=== PATIENT | male | born 1945 | race Caucasian/White ===

== ENCOUNTER → 2021-04-23 08:04 | Outpatient (CLI) | payer MEDICARE, OTHER, SELFPAY | PROVIDERS: Visit Provider Nurse Practitioner | DX: U07.1 COVID-19 (principal) | CPT/HCPCS: C9803; U0003; U0005 ==

== ENCOUNTER 2021-10-01 18:07 | Emergency (ER) | payer MEDICARE, OTHER, SELFPAY ==
[2021-10-01 18:08] VITALS: BP 131/86; PULSE 77; RESP 18; TEMP 37; O2SAT 97; BMI 32.1
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
--- NOTE | 2021-10-01 18:25 | PC.NURSE ---
cleansed head laceration with hibacleanse and 4x4. at bs, placed loli to secure laceration
--- NOTE | 2021-10-01 18:28 | PC.NURSE ---
pt to ct scan
[2021-10-01 19:19] VITALS: BP 136/86; PULSE 77; RESP 18; TEMP 37; O2SAT 97
== END 2021-10-01 19:19 | disposition home or self-care (01) ==
PROVIDERS: Emergency Provider Emergency Medicine
DX: S01.01XA Laceration without foreign body of scalp, initial encounter (principal); E78.5 Hyperlipidemia, unspecified; I10 Essential (primary) hypertension; Z79.899 Other long term (current) drug therapy; Z82.49 Family history of ischemic heart disease and other diseases of the circulatory system; Z83.438 Family history of other disorder of lipoprotein metabolism and other lipidemia; Z83.49 Family history of other endocrine, nutritional and metabolic diseases; Z83.3 Family history of diabetes mellitus; V86.55XA Driver of 3- or 4- wheeled all-terrain vehicle (ATV) injured in nontraffic accident, initial encounter
CPT/HCPCS: 12002; 70450; 90471; 90715; 99285

== ENCOUNTER 2023-04-14 03:38 | Observation (INO) | payer MEDICARE, OTHER, SELFPAY ==
[2023-04-14] VITALS (29 sets, daily range): BP systolic 113–190; BP diastolic 59–112; PULSE 49–84; RESP 12–21; TEMP 36.4–36.8; O2SAT 92–99; BMI 32.5; BMI 32.3
--- NOTE | 2023-04-14 | IR_ITS ---
APPROVED REPORT Patient Location: Inpatient District Supervisor: AUDI Kam RT (R) PROCEDURES Left heart catheterization Left ventriculogram Selective coronary angiogram INDICATION Non-ST elevation myocardial infarction Informed consent was obtained prior to the procedure. COMPLICATIONS None Estimated Blood Loss: Less than 10 ml TECHNIQUE One percent lidocaine used to anesthetize the right anterior aspect of the wrist. The right radial artery was accessed via the Seldinger technique. A 6 M[place]gas[place] sheath was placed in the right radial artery. 2.5 mg of Verapamil, 800 mcg of nitroglycerin, 1mg Lidocaine and 5000 U Heparin were given through the arterial sheath. The papa catheter was inserted into the proximal radial artery and retrograde angiography was performed. This demonstrated significant tortuosity therefore the radial approach had to be abandoned. One percent lidocaine was used to anesthetize the right groin. The right femoral artery was accessed via the Seldinger technique. A 4-Monegasque sheath was placed in the right femoral artery. The JL-4 and JR-4 catheter was also used to perform left heart catheterization left ventriculogram and selective coronary angiogram. At the end of the procedure the patient was transferred to the post-op holding area in stable condition for arterial sheath removal. ANGIOGRAPHIC RESULTS The left main artery Normal The left anterior descending artery He has proximal 10 to 20% stenosis with a long concentric mid vessel 30 to 40% stenosis. The distal portion of the mid LAD has a concentric 60 to 70% stenosis. A large bifurcating first diagonal artery has a proximal concentric 50% stenosis The circumflex artery Is nondominant with an occluded small to medium sized first obtuse marginal artery The right coronary artery Is large and dominant and has proximal 30% concentric stenosis with distal 30 to 40% stenoses. There is diffuse 20% stenoses throughout the PDA and posterior lateral branch The RUBY ventriculogram reveals Normal 60% The left ventricular end-diastolic pressure 20 mmHg IMPRESSION Coronary disease as described above Infarct vessel is likely the first obtuse marginal artery which is occluded and will continue to be treated medically Normal ejection fraction Elevated LVEDP PLAN 1. Recommend aggressive medical management using beta-blockers and antianginal medications 2. LDL less than 55 to be achieved with high intensity statin 3. Avoidance of tobacco products 4. Cardiac rehabilitation 5. Better management of hypertension Electronically signed by : Tono Coleman MD 04/14/2023 12:44:11
--- NOTE | 2023-04-14 03:42 | XR_ITS ---
PROCEDURE INFORMATION: Exam: XR Chest Exam date and time: 04/14/2023 3:42 AM Age: 77 years old Clinical indication: Pain; Chest pressure; Additional info: Chest pain TECHNIQUE: Imaging protocol: Radiologic exam of the chest. Views: 1 view. COMPARISON: No relevant prior studies available. FINDINGS: Lungs: Unremarkable. No consolidation. Pleural spaces: Unremarkable. No pleural effusion. No pneumothorax. Heart/Mediastinum: Unremarkable. No cardiomegaly. Bones/joints: Unremarkable. IMPRESSION: No acute findings.
--- NOTE | 2023-04-14 03:43 | ECG_ITS ---
APPROVED REPORT Exam: Resting ECG HR:52 bpm ECG Measurements Heart Rate 52 AXES CO 232 P 40 QRSd 97 QRS 40 QT 446 T 36 QTc 427 Conclusion SINUS BRADYCARDIA WITH FIRST DEGREE AV BLOCK ABNORMAL ECG UNCONFIRMED REPORT Electronically signed by : Miguel Angel Raza MD 04/15/2023 09:02:58
[2023-04-14] MEDS: ACETAMINOPHEN 500MG TAB 1000 MG PO (03:48)
--- NOTE | 2023-04-14 03:49 | ED_ITS ---
Discharge Plan Disposition Patient Disposition: Admitted Prescriptions Prescriptions: No Action pantoprazole 40 mg tablet,delayed release (DR/EC) 40 mg PO DAILY tamsulosin 0.4 mg capsule 0.4 mg PO DAILY amlodipine 10 mg tablet 10 mg PO DAILY metoprolol succinate 25 mg tablet extended release 24 hr 25 mg PO DAILY simvastatin 5 mg tablet 5 mg PO DAILY cephalexin 500 MG capsule 500 mg PO Q8 Qty: 21 0RF mupirocin 22 GM ointment 1 applicatio TP TID Qty: 15 0RF Referrals Follow up/Referrals: Provider,Referral, MD [Primary Care Provider] - See instructions Clinical Impressions Clinical Impression: Unstable angina pectoris Discharge ED Provider: Garfield Ogden General Adult HPI General Chief complaint: Chest Pain Stated complaint: chest pain Time Seen by Provider: 04/14/23 03:41 History of Present Illness HPI narrative: 77-year-old male, history of hypertension, hyperlipidemia, GERD, BPH presents with chest pain. He reports it is centrally located, radiates to the left side. Mildly improved with nitro with EMS. He reports no cardiac history. He got full dose aspirin with EMS. Normotensive with EMS. Reports no history of clots. Denies any abdominal pain shortness of breath recent fever or infection. Related Data Home Medications Medication Instructions Recorded Confirmed amlodipine 10 mg tablet 10 mg PO DAILY 01/01/21 01/02/22 metoprolol succinate 25 mg 25 mg PO DAILY 01/01/21 01/02/22 tablet,extended release 24 hr pantoprazole 40 mg tablet,delayed 40 mg PO DAILY 01/01/21 01/02/22 release simvastatin 5 mg tablet 5 mg PO DAILY 01/01/21 01/02/22 tamsulosin 0.4 mg capsule 0.4 mg PO DAILY 01/01/21 01/02/22 Previous Rx's Medication Instructions Recorded cephalexin 500 mg capsule 500 mg PO Q8 #21 caps 10/01/21 mupirocin 2 % topical ointment 1 applicatio topical TID #15 grams 10/01/21 Allergies Allergy/AdvReac Type Severity Reaction Status Date / Time No Known Allergies Allergy Verified 01/02/22 09:19 [facility] Disclaimer: The information contained in this section may have been updated after the patient was seen, as this information can be updated by other users. Medical History (Updated 04/14/23 @ 06:24 by Garfield Ogden MD) BPH loc w urin obs/LUTS Screening PSA (prostate specific antigen) Social History Smoking Status: Unknown if ever smoked alcohol intake: never substance use type: denies use current occupational status: retired Travel in the last 8 weeks: None household members: spouse housing: house ROS Obtained: Yes All systems reviewed & no additional complaints except as documented Physical Exam General General appearance: alert and in no apparent distress Head Head exam: atraumatic and normocephalic Eye Eye exam: Present normal appearance, PERRL and EOMI ENT ENT exam: Present normal oropharynx and normal external ear exam Neck Neck exam: Present normal inspection and full ROM Chest Chest inspection: Present normal inspection and symmetric chest wall rise; Absent tenderness Respiratory Respiratory exam: Present normal lung sounds bilaterally; Absent respiratory distress Cardiovascular Cardiovascular exam: Present normal rhythm and bradycardia Abdominal Exam Abdominal exam: Present soft and distention; Absent tenderness or guarding Extremities Exam Extremities exam: Present normal inspection; Absent edema or joint swelling Back Exam Back exam: Present normal inspection; Absent tenderness Neurological Exam Neurological exam: Present alert and oriented X3; Absent motor sensory deficit Psychiatric Psychiatric exam: Present normal affect and normal mood Skin Skin exam: Present warm, dry and normal color Lymphatic Lymphatic Findings: no adenopathy Medical Decision Making Medical Records Medical records reviewed: Yes I reviewed the patient's medical records. Mani Inquiry Pt receiving controlled substance: No Mani was queried for this patient: No Vital Signs: 04/14/23 03:44 04/14/23 04:00 04/14/23 04:30 Temperature 97.6 F Temperature Source Oral Pulse Rate 58 L 49 L Pulse Rate [Right Brachial] 54 L Respiratory Rate 15 21 20 Blood Pressure 128/71 127/69 Blood Pressure [Right Arm] 113/59 L Blood Pressure Mean [Right Arm] 77 Blood Pressure Source [Right Arm] Automatic Cuff Blood Pressure Position [Right Arm] Sitting 02 Sat by Pulse Oximetry 96 98 93 L Oxygen Delivery Method Room Air 04/14/23 05:00 Temperature Temperature Source Pulse Rate 51 L Pulse Rate [Right Brachial] Respiratory Rate 18 Blood Pressure 129/73 Blood Pressure [Right Arm] Blood Pressure Mean [Right Arm] Blood Pressure Source [Right Arm] Blood Pressure Position [Right Arm] 02 Sat by Pulse Oximetry 99 Oxygen Delivery Method Lab Data Lab results reviewed: Yes I reviewed the patient's lab results. Lab Results 04/14/23 03:48: WBC 6.6, RBC 4.77, Hgb 15.1, Hct 43.6, MCV 91.3, MCH 31.6 H, MCHC 34.6, RDW 13.6, Plt Count 167, MPV 8.6, Neut % (Auto) 59.5, Lymph % (Auto) 30.2, [place] % (Auto) 6.5, Eos % (Auto) 3.2, Baso % (Auto) 0.7, Neut # (Auto) 3.9, Lymph # (Auto) 2.0, [place] # (Auto) 0.4, Eos # (Auto) 0.2, Baso # (Auto) 0.0, D- Dimer 0.48, Sodium 137, Potassium 3.5, Chloride 108 H, Carbon Dioxide 23, Anion Gap 9.5, BUN 18, Creatinine 1.20, Estimated Creat Clear 82, Estimated GFR 59, Est GFR ( Amer) 71, Glucose 170 H, Calcium 8.0 L, Total Bilirubin 1.0, AST 28, ALT 23, Alkaline Phosphatase 61, Troponin I < 0.01, Total Protein 6.9, Albumin 4.0, Globulin 2.9, Albumin/Globulin Ratio 1.4 04/14/23 05:10: SARS-CoV-2 (PCR) Not detected, Influenza A Untype (PCR) Not detected, Influenza Type B (PCR) Not detected 04/14/23 03:48 04/14/23 03:48 Orders (Tests/Meds): ED MEDICATIONS Generic Name Dose Route Start Last Admin Trade Name Freq PRN Reason Stop Dose Admin Nitroglycerin 0.4 mg 04/14/23 06:04 04/14/23 06:09 Nitroglycerin 0.4mg Sl Tablet SL 05/14/23 06:03 0.4 mg [id number] PRN Administration Chest Pain Discontinued Medications Generic Name Dose Route Start Last Admin Trade Name Freq PRN Reason Stop Dose Admin Acetaminophen 1,000 mg 04/14/23 03:42 04/14/23 03:48 Acetaminophen 500mg Tab PO 04/14/23 03:43 1,000 mg ONCE ONE Administration ORDERS Category Date Time Status CXR --portable [XR chest portable] Stat Exams 04/14/23 03:42 Completed CBC w/Auto Diff [Complete Blood Count Auto Diff] Stat Lab 04/14/23 03:48 Completed CMP [Comprehensive Metabolic Panel] Stat Lab 04/14/23 03:48 Completed D-Dimer Stat Lab 04/14/23 03:48 Completed Rapid PCR Covid and Flu A/B Stat Lab 04/14/23 05:10 Completed Troponin I Q3H Lab 04/14/23 03:48 Completed Troponin I Q3H Lab 04/14/23 06:45 Ordered HEART Score History (anamnesis): Highly suspicious ECG: Normal Age: >65 years Risk factors: 3 or more risk factors Troponin: </= normal limit HEART Score: 6 Medical Decision Narrative: 77-year-old male, presentation complicated by history of hypertension, hyperlipidemia, GERD, BPH presents with chest pain. Onset a couple hours prior to arrival. Centrally located, rating to the left side.. History was obtained via conversation with patient, EMS, chart review. On arrival, patient is afebrile, mildly bradycardic with rates in the 50s, normotensive, moving all extremities spontaneously. Full physical exam performed and significant for abdominal distention without tenderness, no significant lower extremity edema. Differential includes but is not limited to ACS, PE, arrhythmia, musculoskeletal chest pain, reflux. Patient was given full dose aspirin by EMS prior to arrival, given Tylenol in ED for symptomatic management and correction of underlying abnormalities. Workup initiated including CBC CMP troponin D-dimer COVID flu swab chest x-ray EKG. On re-evaluation, patient [remains afebrile, HD stable.] Reports pain is stable. Laboratory workup independently interpreted by me and significant for undet ectable initial troponin, D-dimer within normal limits, mild hypocalcemia, COVID flu negative. Imaging independently interpreted by me and significant for clear lungs bilaterally without evidence of focal opacity. See radiology read for full review of final results. EKG independently interpreted by me and significant for sinus bradycardia with first-degree AV block, rate of 52, no ST depression or elevation. Patient was placed in observation status at 3:50 AM for serial troponins and cardiac monitoring with goal of avoiding potentially unnecessary admission. On reassessment patient reports continued chest pain. On my interpretation of clinical research monitor, patient remains bradycardic with rates between 45 and 55. Patient was given nitro with improvement in chest pain. Patient's presentation is consistent with unstable angina. Given this, patient would benefit from admission for cardiac monitoring and cardiology evaluation. I had an interactive discussion with the hospitalist on-call for admission prior to the second troponin returning. Procedures Risk/Benefits of Procedure(s) Were Explained: Yes Critical Care Critical Care Time Critical Care Time: No
[2023-04-14 03:58] LABS: Basophils % 0.7 % (0.1-2.0); Eosinophils # 0.2 K/mm3 (0.0-0.4); Eosinophils % 3.2 % (0.1-12.0); Hematocrit 43.6 % (42.0-52.0); Hemoglobin 15.1 g/dL (14.1-18.0); Lymphocytes % 30.2 % (10-50); Mean Corpuscular HGB Conc 34.6 g/dL (31.8-35.4); Mean Corpuscular Hemoglobin 31.6 pg (27.0-31.2); Mean Corpuscular Volume 91.3 fl (80-94); Mean Platelet Volume 8.6 fl (7.4-10.4); Monocytes # 0.4 K/mm3 (0.1-1.0); Monocytes % 6.5 % (1.7-9.3); Neutrophils # 3.9 K/mm3 (1.8-7.8); Neutrophils % 59.5 % (37.0-80.0); Platelet Count 167 K/mm3 (142-424); Red Blood Count 4.77 M/mm3 (4.60-6.20); Red Cell Distribution Width 13.6 % (11.5-17.5); White Blood Count 6.6 K/mm3 (4.8-10.8)
[2023-04-14 04:05] LABS: Alanine Aminotransferase 23 U/L (12-78); Alkaline Phosphatase 61 U/L (38-126); Aspartate Amino Transferase 28 U/L (17-59); Blood Urea Nitrogen 18 mg/dl (9-20); Carbon Dioxide 23 mmol/L (22.0-30.0); Chloride 108 mmol/L (98-107); Creatinine Clearance Estimated 82 mL/min (50-200); Estimated Glomerular Filt Rate 59 ml/min (>60); GFR (African American) 71 ML/MIN (>60); Glucose 170 mg/dl (74-100)
[2023-04-14 04:06] LABS: Albumin/Globulin Ratio 1.4 (1.1-1.8); Anion Gap 9.5 mEq/L (5-15); Globulin 2.9 g/dL (1.3-3.2); Potassium 3.5 mmoL/L (3.5-5.1); Sodium 137 mmol/L (136-145); Total Protein,Serum 6.9 g/dl (6.3-8.2)
[2023-04-14 04:10] LABS: D-Dimer 0.48 ug/mL (0.0-0.5)
[2023-04-14 04:27] LABS: Troponin I < 0.01 ng/ml (0.00-0.034)
[2023-04-14 05:16] LABS: Coronavirus 19, PCR Not Detected (NotDetected); Influenza A, PCR Not Detected (NotDetected); Influenza B, PCR Not Detected (NotDetected)
--- NOTE | 2023-04-14 05:29 | PC.NURSE ---
pt assisted to bathroom and returned back to bed
[2023-04-14] MEDS: NITROGLYCERIN 0.4MG SL TABLET 0.400000000000000022 MG SL ×3 (06:09→09:42)
--- NOTE | 2023-04-14 06:20 | PC.NURSE ---
pt reports his pain has improved since the dose of nitro
--- NOTE | 2023-04-14 06:24 | PC.NURSE ---
called house for bed assignment: diagnosis atypical chest pain, hospitalist
--- NOTE | 2023-04-14 07:01 | P.HP_ITS ---
History of Present Illness *Admission Date: 04/14/23 *Reason for visit:: chest pain *History of present illness: Mr. Herring is a 77-year-old male with history of hypertension, CAD, BPH who presented to the ER with onset of chest pain centrally located at 1 AM this morning. States the pain radiates to his left arm. Feels like something is sitting on his chest. Had some mild improvement with nitro administered by EMS. EMS brought him to the ER for further eval. Received full dose aspirin in transport. On arrival to the ER, EKG is unremarkable. Initial troponin was less than 0.01. Repeat 3-hour troponin jumped to 0.09. Given classic nature of pain, elevation in troponin, cardiology and medicine were consulted. On arrival to the floor, having recurrence of pain. Responded to nitro. Denies any shortness of breath, confusion, headache. No tenderness to palpation on chest. No nausea or vomiting. Family at bedside and updated of plan. [facility] Disclaimer: The information contained in this section may have been updated after the patient was seen, as this information can be updated by other users. Medical History (Updated 04/14/23 @ 18:20 by Regan Al MD) BPH (benign prostatic hyperplasia) BPH loc w urin obs/LUTS GERD (gastroesophageal reflux disease) History of left heart catheterization HLD (hyperlipidemia) HTN (hypertension) Screening PSA (prostate specific antigen) Surgical History History of appendectomy Family History Unknown family medical history Social History Smoking Status: Never smoker alcohol intake: never substance use type: denies use current occupational status: retired Travel in the last 8 weeks: None household members: spouse housing: house Review of Systems Review of Systems Review of systems (narrative): 14 point review of systems performed, pertinent positives and negatives as per HPI Meds Home Medications and Allergies Home Medications Medication Instructions Recorded Confirmed Type amlodipine 10 mg tablet 10 mg PO DAILY 01/01/21 04/14/23 History pantoprazole 40 mg tablet,delayed 40 mg PO DAILY 01/01/21 04/14/23 History release tamsulosin 0.4 mg capsule 0.4 mg PO DAILY 01/01/21 04/14/23 History aspirin 81 mg chewable tablet 81 mg PO DAILY 30 days #30 tabs 04/14/23 Rx (Yoselin Chewable Low Dose Aspirin) atorvastatin 20 mg tablet (Lipitor) 20 mg PO HS 30 days #30 tabs 04/14/23 Rx clopidogrel 75 mg tablet (Plavix) 75 mg PO DAILY 30 days #30 tabs 04/14/23 Rx metoprolol succinate 100 mg 100 mg PO DAILY 30 days #30 tabs 04/14/23 Rx tablet,extended release 24 hr (Toprol XL) New Prescriptions to Start Prescriptions: aspirin [Yoselin Chewable Aspirin] Virginia,Tono atorvastatin [Lipitor] Tono Coleman clopidogrel [Plavix] Virginia,Tono metoprolol succinate [Toprol XL] Tono Coleman Allergies Allergy/AdvReac Type Severity Reaction Status Date / Time No Known Allergies Allergy Verified 01/02/22 09:19 Exam Data for Last 24 hours Vital signs and Labs for Last 24 Hours: Temp Pulse Resp BP Pulse Ox O2 Del Method 97.6 F 51 L 18 129/73 99 Room Air 04/14/23 03:44 04/14/23 05:00 04/14/23 05:00 04/14/23 05:00 04/14/23 05:00 04/14/23 03:44 Laboratory Results - last 24 hr 04/14/23 03:48: WBC 6.6, RBC 4.77, Hgb 15.1, Hct 43.6, MCV 91.3, MCH 31.6 H, MCHC 34.6, RDW 13.6, Plt Count 167, MPV 8.6, Neut % (Auto) 59.5, Lymph % (Auto) 30.2, [place] % (Auto) 6.5, Eos % (Auto) 3.2, Baso % (Auto) 0.7, Neut # (Auto) 3.9, Lymph # (Auto) 2.0, [place] # (Auto) 0.4, Eos # (Auto) 0.2, Baso # (Auto) 0.0, D- Dimer 0.48, Sodium 137, Potassium 3.5, Chloride 108 H, Carbon Dioxide 23, Anion Gap 9.5, BUN 18, Creatinine 1.20, Estimated Creat Clear 82, Estimated GFR 59, Est GFR ( Amer) 71, Glucose 170 H, Calcium 8.0 L, Total Bilirubin 1.0, AST 28, ALT 23, Alkaline Phosphatase 61, Troponin I < 0.01, Total Protein 6.9, Albumin 4.0, Globulin 2.9, Albumin/Globulin Ratio 1.4 04/14/23 05:10: SARS-CoV-2 (PCR) Not detected, Influenza A Untype (PCR) Not detected, Influenza Type B (PCR) Not detected I & O for Last 24 hours: Intake & Output 04/11/23 04/12/23 04/13/23 04/14/23 23:59 23:59 23:59 23:59 Weight 108.862 kg Constitutional Constitutional: no acute distress and obese *Routine HEENT Exam Head: Present normocephalic Eye: Present EOMI and PERRL ENT: Present mucous membranes moist *Routine Neck Exam Neck: Present supple; Absent lymphadenopathy Routine Chest/Breast/Axilla Exam Chest wall: Absent tenderness *Routine Respiratory Exam Respiratory: Present CTA bilaterally *Routine Cardiovascular Exam Cardiovascular: Present RRR *Routine Abdominal Exam Abdominal: Present soft and normoactive bowel sounds; Absent tenderness *Routine Rectal Exam Rectal:: deferred *Routine Genitalia Exam Genitalia:: deferred *Routine Extremities Exam Extremities: Absent cyanosis, clubbing or edema *Routine Skin Exam Skin: Present warm; Absent rash *Routine Neurological Exam Neurological: Present alert, oriented X3 and moving all extremities; Absent altered mental status Assessment and Plan *Assessment and plan (1) Unstable angina pectoris: Status: Acute Category: Medical Code(s): I20.0 - Unstable angina (2) NSTEMI (non-ST elevated myocardial infarction): Status: Acute Category: Medical Code(s): I21.4 - Non-ST elevation (NSTEMI) myocardial infarction (3) BPH loc w urin obs/LUTS: Status: Acute Category: Medical Code(s): N40.1 - Benign prostatic hyperplasia with lower urinary tract symptoms (4) GERD (gastroesophageal reflux disease): Status: Chronic Qualifiers: Esophagitis presence: esophagitis presence not specified Qualified Code(s): K21.9 - Gastro-esophageal reflux disease without esophagitis Category: Medical Code(s): K21.9 - Gastro-esophageal reflux disease without esophagitis (5) HTN (hypertension): Status: Chronic Qualifiers: Hypertension type: primary hypertension Qualified Code(s): I10 - Essential (primary) hypertension Category: Medical Code(s): I10 - Essential (primary) hypertension (6) HLD (hyperlipidemia): Status: Chronic Qualifiers: Hyperlipidemia type: mixed hyperlipidemia Qualified Code(s): E78.2 - Mixed hyperlipidemia Category: Medical Code(s): E78.5 - Hyperlipidemia, unspecified Plan 77-year-old male with onset of chest pain overnight. Came to the ER. Having unstable angina. Discussed case with the ER, request admission for serial troponins, cardiology consult, and further management including possible left heart cath. Medicine agreed to admit for further management. Patient provides additional history that he had similar episode 1 week ago that resolved without any treatment. Necessitating inpatient admission. Problems addressed as follows: NSTEMI Unstable angina -Serial troponin with 3-hour 0.09. -Repeat EKG obtained after his initial EKG which was normal showing T wave inversions in inferior leads -Cardiology consulted, taken to Pulmonary Specialist today for intervention. Further nicol jordan pending findings -Will address pressure. Initiate on irbesartan 75 mg daily and isosorbide mononitrate 30 mg daily -Echocardiogram obtained and pending read -Continue for 90 g Plavix 75 mg daily -Lipitor increased to 40 mg nightly -Initiated on metoprolol 100 mg daily BPH: Tamsulosin 0.4 mg nightly Full code Cardiac diet Heparinized and Pulmonary Specialist
--- NOTE | 2023-04-14 07:17 | PC.NURSE ---
ATTEMPTED TO CALL REPORT, NO ANSWER
[2023-04-14] MEDS: HEPARIN SODIUM 5,000 UNIT/ML VIAL 5000 UNIT SQ ×3 (07:27→23:00)
--- NOTE | 2023-04-14 07:30 | PC.NURSE ---
REPEAT TROP SENT AT THIS TIME
[2023-04-14 08:03] LABS: Troponin I 0.09 ng/ml (0.00-0.034)
--- NOTE | 2023-04-14 08:32 | HMH.PHAINT1 ---
Pharmacy Intervention Comments: Home med list verified with patient at bedside and with external pharmacy list.
--- NOTE | 2023-04-14 10:38 | CA_ITS ---
APPROVED REPORT EXAM: Comprehensive 2D, Doppler, and color-flow Echocardiogram Chief Investigator: Annmarie Escobedo RT(R) Ht: 6 ft 1 in Wt: 245lbs BSA: 2.35 BP: 129/73 mmHg Indications: Atypical CP, HTN, hyperlipidemia, radiating on left side, GERD, elevated troponins 2D Dimensions LVEF (Fernández's) 63.30 % M: 52 - 72 LV Volume 105.00 mL M: 62 - 150 LV Volume Index 44.7 mL/m2 M: 34 - 74 EF AP4 53.80 % EF AP2 69.2 % EF BP 63.3 % GL Strain -19.7 % M-Mode Dimensions RVDd 3.61 cm (0.9-2.6) LA Diam 3.47 cm (1.9-4.0) LVDd 5.05 cm (3.5-5.7) LVDs 3.65 cm (3.5-5.7) IVSd 1.02 cm (0.6-1.1) PWd 0.89 cm (0.6-1.1) EF (Teich) 53.50% FS 27.70% EDV (Teich) 121.00 mL ESV (Teich) 56.30 mL LV Diastology E Decel Time 193 (160-240 msec) E/A Ratio 0.96 Mitral Valve MV A Velocity 82.0 (40-130 cm/s) E/A Ratio 0.96 Tricuspid Valve TR P. Velocity 314.00 cm/s RAP Estimate 10.00 mmHg RVSP 49.30 mmHg Left Ventricle The left ventricle is normal size. The left ventricular systolic function is normal. The left ventricular ejection fraction is within the normal range. There is increased LV wall thickness. There is normal LV segmental wall motion. The left ventricular diastolic function is normal. LVEF is 55%. Right Ventricle The right ventricle is moderately dilated. Right ventricle is mildly hypokinetic. Atria The left atrium size is normal. The right atrium size is normal. The interatrial septum is not well-visualized. Aortic Valve The aortic valve is mildly thickened. There is no aortic valvular stenosis. Trace aortic regurgitation. Mitral Valve The mitral valve leaflets are mildly thickened. No evidence of mitral valve stenosis. Trace mitral regurgitation. Tricuspid Valve The tricuspid valve leaflets are thin and pliable. Mild tricuspid regurgitation. RVSP is 35 mmHg + RA pressure. Pulmonic Valve The pulmonic valve is not well-visualized. Great Vessels The aortic root is normal in size. The IVC is not well-visualized. Pericardium There is no pericardial effusion. Conclusion Normal LV systolic function. Moderate RV dilation with mild reduction in RV systolic function. Mild TR. Elevated RVSP 35 mmHg + RA pressure. Electronically signed by : Pallavi Cunha MD 04/14/2023 12:48:03
--- NOTE | 2023-04-14 11:11 | ECG_ITS ---
APPROVED REPORT Exam: Resting ECG HR:67 bpm ECG Measurements Heart Rate 67 AXES MS 238 P 69 QRSd 90 QRS -4 QT 413 T -10 QTc 428 Conclusion SINUS RHYTHM WITH FIRST DEGREE AV BLOCK VOLTAGE CRITERIA FOR LVH [MEETS CRITERIA IN ONE OF: R(aVL), S(V1), R(V5), R(V5/V6)+S(V1)] ABNORMAL ECG UNCONFIRMED REPORT Electronically signed by : Miguel Angel Raza MD 04/15/2023 09:01:59
[2023-04-14] MEDS: ASPIRIN 325MG TABLET 325 MG PO (11:23)
[2023-04-14] MEDS: CLOPIDOGREL 300MG TABLET 300 MG PO (11:24)
--- NOTE | 2023-04-14 11:45 | PC.NURSE ---
report given to refuse laborer nurse
[2023-04-14] MEDS: LIDOCAINE 1% 10ML MDV 20 ML IJ (12:12)
[2023-04-14] MEDS: HEPARIN 1,000 UNITS/ML 10ML VIAL (CATH LAB) 10000 UNIT IV (12:12)
[2023-04-14] MEDS: 0.9 % SODIUM CHLORIDE 500 ML 25 ML IV (12:12)
[2023-04-14] MEDS: HEPARIN 1,000 UNITS/500ML NS (CATH LAB) 3000 UNIT IV (12:12)
[2023-04-14] MEDS: diphenhydrAMINE 50MG/ML VIAL 50 MG IV (12:13)
[2023-04-14] MEDS: VERAPAMIL 2.5MG/ML 2ML VIAL 2.5 MG IV (12:13)
[2023-04-14] MEDS: NITROGLYCERIN 800MCG/8ML SYR (CATH LAB) 800 MCG IA (12:13)
[2023-04-14] MEDS: MIDAZOLAM HCL 1MG/1ML 5ML VIAL 1 MG IV (12:17)
[2023-04-14] MEDS: FENTANYL 100MCG/2ML VIAL 50 MCG IV (12:17)
[2023-04-14] MEDS: IOPAMIDOL-370 (76%);100ML BOTTLE 110 ML IV (12:44)
[2023-04-14] MEDS: METOPROLOL SUCCINATE XL 100MG TABLET 100 MG PO (13:46)
--- NOTE | 2023-04-14 16:00 | PC.NURSE ---
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
[2023-04-14] MEDS: IRBESARTAN 75MG TABLET 75 MG PO (16:30)
[2023-04-14] MEDS: ISOSORBIDE MONO 30MG TAB.ER.24H 30 MG PO (16:30)
--- NOTE | 2023-04-14 18:46 | PC.NURSE ---
Patient's hypertension is resolving with ordered medications
[2023-04-14] MEDS: TAMSULOSIN 0.4MG CAPSULE 0.400000000000000022 MG PO (18:58)
--- NOTE | 2023-04-14 19:14 | PC.NURSE ---
patient c/o trouble urinating and abdominal pain. bladder scan showed [address] Al notified, flomax given, reevaluate and re bladder scan in 2 hrs
--- NOTE | 2023-04-14 20:03 | PC.NURSE ---
Patient was unable to void any urine after bladder scan. Straight cath performed per protocol using a 14fr coude. Patient tolerated this well. Immediate release of 850mL obtained from bladder. Specimen sent to lab
[2023-04-14] MEDS: ATORVASTATIN 40MG TABLET 40 MG PO (20:18)
[2023-04-15] VITALS: BP 151/87; PULSE 54; PULSE 60; PULSE 62; RESP 15; TEMP 36.4; O2SAT 92
[2023-04-15 04:00] VITALS: BP 165/94; PULSE 56; PULSE 84; RESP 20; TEMP 36.4; O2SAT 96; BMI 32.8
--- NOTE | 2023-04-15 05:11 | PC.NURSE ---
Patient has voided twice since his in and out cath earlier in shift. Bladder scan shows <25 mL present
[2023-04-15] MEDS: HEPARIN SODIUM 5,000 UNIT/ML VIAL 5000 UNIT SQ (06:16)
[2023-04-15 07:02] LABS: Basophils % 0.4 % (0.1-2.0); Eosinophils # 0.1 K/mm3 (0.0-0.4); Eosinophils % 0.8 % (0.1-12.0); Hematocrit 44.5 % (42.0-52.0); Hemoglobin 15.1 g/dL (14.1-18.0); Lymphocytes # 1.3 K/mm3 (0.7-4.5); Lymphocytes % 14.4 % (10-50); Mean Corpuscular HGB Conc 33.9 g/dL (31.8-35.4); Mean Corpuscular Hemoglobin 31.3 pg (27.0-31.2); Mean Corpuscular Volume 92.3 fl (80-94); Mean Platelet Volume 8.2 fl (7.4-10.4); Monocytes # 0.6 K/mm3 (0.1-1.0); Monocytes % 6.1 % (1.7-9.3); Neutrophils # 7.2 K/mm3 (1.8-7.8); Neutrophils % 78.3 % (37.0-80.0); Platelet Count 147 K/mm3 (142-424); Red Blood Count 4.82 M/mm3 (4.60-6.20); Red Cell Distribution Width 13.7 % (11.5-17.5); White Blood Count 9.1 K/mm3 (4.8-10.8)
[2023-04-15 07:28] LABS: Alanine Aminotransferase 33 U/L (12-78); Albumin Level 3.9 g/dl (3.5-5.0); Albumin/Globulin Ratio 1.3 (1.1-1.8); Alkaline Phosphatase 63 U/L (38-126); Anion Gap 9.5 mEq/L (5-15); Aspartate Amino Transferase 131 U/L (17-59); Bilirubin,Total 1.8 mg/dl (0.2-1.3); Blood Urea Nitrogen 13 mg/dl (9-20); Calcium 8.2 mg/dl (8.4-10.2); Carbon Dioxide 25 mmol/L (22.0-30.0); Chloride 106 mmol/L (98-107); Creatinine Clearance Estimated 92 mL/min (50-200); Estimated Glomerular Filt Rate 65 ml/min (>60); GFR (African American) 79 ML/MIN (>60); Globulin 2.9 g/dL (1.3-3.2); Glucose 120 mg/dl (74-100); Potassium 3.5 mmoL/L (3.5-5.1); Sodium 137 mmol/L (136-145); Total Protein,Serum 6.8 g/dl (6.3-8.2)
--- NOTE | 2023-04-15 07:34 | EXP.DC.SUM ---
General Admission date:: 04/14/23 Discharge date: 04/15/23 HPI HPI HPI: Mr. Herring is a 77-year-old male with history of hypertension, CAD, BPH who presented to the ER with onset of chest pain centrally located at 1 AM this morning. States the pain radiates to his left arm. Feels like something is sitting on his chest. Had some mild improvement with nitro administered by EMS. EMS brought him to the ER for further eval. Received full dose aspirin in transport. On arrival to the ER, EKG is unremarkable. Initial troponin was less than 0.01. Repeat 3-hour troponin jumped to 0.09. Given classic nature of pain, elevation in troponin, cardiology and medicine were consulted. On arrival to the floor, having recurrence of pain. Responded to nitro. Denies any shortness of breath, confusion, headache. No tenderness to palpation on chest. No nausea or vomiting. Family at bedside and updated of plan. Hospital Course Hospital Course Hospital Course: 77-year-old male with onset of chest pain overnight. Came to the ER. Having unstable angina. Discussed case with the ER, request admission for serial troponins, cardiology consult, and further management including possible left heart cath. Medicine agreed to admit for further management. Patient provides additional history that he had similar episode 1 week ago that resolved without any treatment. Necessitating inpatient admission. Evaluated by cardiology. Taken for left heart cath. Just medical regimen, mild coronary disease but no stents needed. Stable for discharge home. Problems addressed as follows: NSTEMI Unstable angina CAD -Patient initiated for chest pain and serial troponins. Had mild elevation in troponin. EKG was obtained with T wave inversions in inferior leads. Cardiology was consulted and patient was taken to the [facility] for intervention. Adjustments made to his blood pressure regimen. Findings on left heart cath as follows: IMPRESSION Coronary disease as an report in full detail. Infarct vessel is likely the first obtuse marginal artery which is occluded and will continue to be treated medically Normal ejection fraction Elevated LVEDP Will initiate aggressive medical management with beta-blockers and antianginal medications. Initiated on irbesartan 150 mg daily, isosorbide mononitrate 30 mg daily. Lipitor increased to 40 mg nightly. Will initiate metoprolol 100 mg daily. Echocardiogram obtained showing preserved ejection fraction. Follow-up with cardiology in the coming weeks for further management. Continue aspirin 81mg and Plavix 75mg daily given myocardial injury and coronary artery disease. BPH: Tamsulosin 0.4 mg nightly, initiated on finasteride. Had episode of urinary retention that resolved with In-N-Out cath and was able to void thereafter. Reevaluate in outpatient setting. Follows with urology. Exam Data for Last 24 hours Vital signs and Labs for Last 24 Hours: Temp Pulse Resp BP Pulse Ox O2 Del Method 97.5 F L 56 L 20 165/94 H 96 Room Air 04/15/23 04:00 04/15/23 04:00 04/15/23 04:00 04/15/23 04:00 04/15/23 04:00 04/15/23 06:21 Laboratory Results - last 24 hr 04/14/23 07:30: Troponin I 0.09 H 04/15/23 06:25: WBC 9.1 D, RBC 4.82, Hgb 15.1, Hct 44.5, MCV 92.3, MCH 31.3 H, MCHC 33.9, RDW 13.7, Plt Count 147, MPV 8.2, Neut % (Auto) 78.3, Lymph % (Auto) 14.4, [place] % (Auto) 6.1, Eos % (Auto) 0.8, Baso % (Auto) 0.4, Neut # (Auto) 7.2, Lymph # (Auto) 1.3, [place] # (Auto) 0.6, Eos # (Auto) 0.1, Baso # (Auto) 0.0, Sodium 137, Potassium 3.5, Chloride 106, Carbon Dioxide 25, Anion Gap 9.5, BUN 13 D, Creatinine 1.10, Estimated Creat Clear 92, Estimated GFR 65, Est GFR ( Amer) 79, Glucose 120 H, Calcium 8.2 L, Magnesium 2.0, Total Bilirubin 1.8 H, AST 131 H D, ALT 33 D, Alkaline Phosphatase 63, Total Protein 6.8, Albumin 3.9, Globulin 2.9, Albumin/Globulin Ratio 1.3 I & O for Last 24 hours: Intake & Output 04/12/23 04/13/23 04/14/23 04/15/23 23:59 23:59 23:59 23:59 Intake Total 270 / 270 0 / 0 Output Total 1250 / 1250 650 / 650 Balance -980 / -980 -650 / -650 Weight 111.244 kg 112.122 kg Constitutional Constitutional: no acute distress *Routine HEENT Exam Head: Present normocephalic Eye: Present EOMI and PERRL ENT: Present mucous membranes moist *Routine Neck Exam Neck: Present supple; Absent lymphadenopathy *Routine Respiratory Exam Respiratory: Present CTA bilaterally *Routine Cardiovascular Exam Cardiovascular: Present RRR *Routine Abdominal Exam Abdominal: Present soft and normoactive bowel sounds; Absent tenderness *Routine Extremities Exam Extremities: Absent cyanosis, clubbing or edema *Routine Skin Exam Skin: Present warm; Absent rash *Routine Neurological Exam Neurological: Present alert and oriented X3 Results Data Completed and Pending Labs on day of discharge: Labs from last 24 hours 04/15/23 04/14/23 06:25 07:30 WBC 9.1 D RBC 4.82 Hgb 15.1 Hct 44.5 MCV 92.3 MCH 31.3 H MCHC 33.9 RDW 13.7 Plt Count 147 MPV 8.2 Neut % (Auto) 78.3 Lymph % (Auto) 14.4 [place] % (Auto) 6.1 Eos % (Auto) 0.8 Baso % (Auto) 0.4 Neut # (Auto) 7.2 Lymph # (Auto) 1.3 [place] # (Auto) 0.6 Eos # (Auto) 0.1 Baso # (Auto) 0.0 Sodium 137 Potassium 3.5 Chloride 106 Carbon Dioxide 25 Anion Gap 9.5 BUN 13 D Creatinine 1.10 Estimated Creat Clear 92 Estimated GFR 65 Est GFR ( Amer) 79 Glucose 120 H Calcium 8.2 L Magnesium 2.0 Total Bilirubin 1.8 H AST 131 H D ALT 33 D Alkaline Phosphatase 63 Troponin I 0.09 H Total Protein 6.8 Albumin 3.9 Globulin 2.9 Albumin/Globulin Ratio 1.3 DS: Diagnosis Discharge Diagnosis (1) Unstable angina pectoris: Status: Acute Code(s): I20.0 - Unstable angina (2) NSTEMI (non-ST elevated myocardial infarction): Status: Acute Code(s): I21.4 - Non-ST elevation (NSTEMI) myocardial infarction (3) BPH loc w urin obs/LUTS: Status: Acute Code(s): N40.1 - Benign prostatic hyperplasia with lower urinary tract symptoms (4) GERD (gastroesophageal reflux disease): Status: Chronic Code(s): K21.9 - Gastro-esophageal reflux disease without esophagitis Qualifiers: Esophagitis presence: esophagitis presence not specified Qualified Code(s): K21.9 - Gastro-esophageal reflux disease without esophagitis (5) HTN (hypertension): Status: Chronic Code(s): I10 - Essential (primary) hypertension Qualifiers: Hypertension type: primary hypertension Qualified Code(s): I10 - Essential (primary) hypertension (6) HLD (hyperlipidemia): Status: Chronic Code(s): E78.5 - Hyperlipidemia, unspecified Qualifiers: Hyperlipidemia type: mixed hyperlipidemia Qualified Code(s): E78.2 - Mixed hyperlipidemia Meds Home Medications and Allergies Home Medications Medication Instructions Recorded Confirmed Type pantoprazole 40 mg tablet,delayed 40 mg PO DAILY 01/01/21 04/14/23 History release tamsulosin 0.4 mg capsule 0.4 mg PO DAILY 01/01/21 04/14/23 History aspirin 81 mg chewable tablet 81 mg PO DAILY 30 days #30 tabs 04/14/23 Rx (Yoselin Chewable Low Dose Aspirin) atorvastatin 20 mg tablet (Lipitor) 20 mg PO HS 30 days #30 tabs 04/14/23 Rx clopidogrel 75 mg tablet (Plavix) 75 mg PO DAILY 30 days #30 tabs 04/14/23 Rx metoprolol succinate 100 mg 100 mg PO DAILY 30 days #30 tabs 04/14/23 Rx tablet,extended release 24 hr (Toprol XL) amlodipine 10 mg tablet 5 mg PO DAILY 30 days #0 tabs 04/15/23 04/14/23 Rx finasteride 5 mg tablet 5 mg PO DAILY 30 days #30 tabs 04/15/23 Rx irbesartan 150 mg tablet 150 mg PO DAILY 30 days #30 tabs 04/15/23 Rx isosorbide mononitrate 30 mg 30 mg PO DAILY 30 days #30 tabs 04/15/23 Rx tablet,extended release 24 hr New Prescriptions to Start Prescriptions: aspirin [Yoselin Chewable Aspirin] Tono Coleman atorvastatin [Lipitor] Tono Coleman clopidogrel [Plavix] Tono Coleman finasteride Servando,Regan irbesartan Servando,Regan isosorbide mononitrate Servando,Regan metoprolol succinate [Toprol XL] Tono Coleman Allergies Allergy/AdvReac Type Severity Reaction Status Date / Time No Known Allergies Allergy Verified 01/02/22 09:19 Discharge Plan Disposition Patient Disposition: Home, Self-Care Condition: Fair Follow up Plan Follow up with: Marsha Macario [Referring] - 04/21/23 3:45 pm Tono Coleman MD [Staff Physician] - 04/23/23 2:30 pm Prescriptions/Medication Reconciliation: New atorvastatin [Lipitor] 20 mg Tablet 20 mg PO HS 30 Days Qty: 30 6RF metoprolol succinate [Toprol XL] 100 mg Tablet Extended Release 24 Hr 100 mg PO DAILY 30 Days Qty: 30 6RF clopidogrel [Plavix] 75 mg Tablet 75 mg PO DAILY 30 Days Qty: 30 6RF aspirin [Yoselin Chewable Aspirin] 81 mg Tablet,Chewable 81 mg PO DAILY 30 Days Qty: 30 6RF isosorbide mononitrate 30 mg Tablet Extended Release 24 Hr 30 mg PO DAILY 30 Days Qty: 30 0RF irbesartan 150 mg Tablet 150 mg PO DAILY 30 Days Qty: 30 0RF finasteride 5 mg Tablet 5 mg PO DAILY 30 Days Qty: 30 0RF Continued pantoprazole 40 mg tablet,delayed release (DR/EC) 40 mg PO DAILY tamsulosin 0.4 mg capsule 0.4 mg PO DAILY Changed amlodipine 10 mg tablet 5 mg PO DAILY 30 Days Qty: 0 0RF Discontinued metoprolol succinate 25 mg tablet extended release 24 hr 25 mg PO DAILY simvastatin 5 mg tablet 5 mg PO DAILY Problem Reconciliation Problems Reviewed?: Yes Patient Discharge Instructions ACTIVITY: Continue current activity DIET: continue same diet Patient Instructions: Angina Providers Primary Care Provider: Provider,Referral Admit Provider: Linus Ortiz Attending Provider: Linus Ortiz
[2023-04-15 08:00] VITALS: BP 168/102; PULSE 60; PULSE 61; RESP 18; TEMP 36.8; O2SAT 92
[2023-04-15] MEDS: FINASTERIDE 5MG TABLET 5 MG PO (08:40)
[2023-04-15] MEDS: ISOSORBIDE MONO 30MG TAB.ER.24H 30 MG PO (08:41)
[2023-04-15] MEDS: CLOPIDOGREL 75MG TAB 75 MG PO (08:41)
[2023-04-15] MEDS: PANTOPRAZOLE 40MG TABLET 40 MG PO (08:41)
[2023-04-15] MEDS: ASPIRIN 81MG CHEWABLE TABLET 81 MG PO (08:41)
[2023-04-15] MEDS: METOPROLOL SUCCINATE XL 100MG TABLET 100 MG PO (08:41)
[2023-04-15] MEDS: IRBESARTAN 150MG TAB 150 MG PO (08:41)
[2023-04-15] MEDS: TAMSULOSIN 0.4MG CAPSULE 0.400000000000000022 MG PO (08:45)
--- NOTE | 2023-04-15 11:19 | EXP.CARD.CON ---
History of Present Illness History of Present Illness Consult date: 04/15/23 Requesting physician: Regan Al Consult reason: chest pain Chief complaint: chest pain History of present illness: Mr. Herring is a 77-year-old male with history of hypertension, CAD, BPH who presented to the ER with onset of chest pain centrally located at 1 AM yesterday morning. States the pain radiates to his left arm. Feels like something is sitting on his chest. Had some mild improvement with nitro administered by EMS. EMS brought him to the ER for further eval. Received full dose aspirin in transport. On arrival to the ER, EKG is unremarkable. Initial troponin was less than 0.01. Repeat 3-hour troponin jumped to 0.09. Given classic nature of pain, elevation in troponin, cardiology and medicine were consulted. On arrival to the floor, having recurrence of pain. Responded to nitro. Denies any shortness of breath, confusion, headache. No tenderness to palpation on chest. No nausea or vomiting. Family at bedside and updated of plan. [facility] 04/14/2023 ANGIOGRAPHIC RESULTS The left main artery Normal The left anterior descending artery He has proximal 10 to 20% stenosis with a long concentric mid vessel 30 to 40% stenosis. The distal portion of the mid LAD has a concentric 60 to 70% stenosis. A large bifurcating first diagonal artery has a proximal concentric 50% stenosis The circumflex artery Is nondominant with an occluded small to medium sized first obtuse marginal artery The right coronary artery Is large and dominant and has proximal 30% concentric stenosis with distal 30 to 40% stenoses. There is diffuse 20% stenoses throughout the PDA and posterior lateral branch The RUBY ventriculogram reveals Normal 60% The left ventricular end-diastolic pressure 20 mmHg IMPRESSION Coronary disease as described above Infarct vessel is likely the first obtuse marginal artery which is occluded and will continue to be treated medically Normal ejection fraction Elevated LVEDP PLAN 1. Recommend aggressive medical management using beta-blockers and antianginal medications 2. LDL less than 55 to be achieved with high intensity statin 3. Avoidance of tobacco products 4. Cardiac rehabilitation 5. Better management of hypertension [facility] Disclaimer: The information contained in this section may have been updated after the patient was seen, as this information can be updated by other users. Medical History (Updated 04/15/23 @ 11:21 by Kassy J Rodriguez, HORSE TRADER) BPH (benign prostatic hyperplasia) BPH loc w urin obs/LUTS GERD (gastroesophageal reflux disease) History of left heart catheterization HLD (hyperlipidemia) HTN (hypertension) Screening PSA (prostate specific antigen) Surgical History History of appendectomy Family History Unknown family medical history Social History Smoking Status: Never smoker alcohol intake: never substance use type: denies use current occupational status: retired Travel in the last 8 weeks: None household members: spouse housing: house Review of Systems *Cardiovascular Cardiovascular: Reports chest pain Exam Data for Last 24 hours Vital signs and Labs for Last 24 Hours: Temp Pulse Resp BP Pulse Ox O2 Del Method 98.2 F 61 18 168/102 H 92 L Room Air 04/15/23 08:00 04/15/23 08:00 04/15/23 08:00 04/15/23 08:00 04/15/23 08:00 04/15/23 10:55 Laboratory Results - last 24 hr 04/15/23 06:25: WBC 9.1 D, RBC 4.82, Hgb 15.1, Hct 44.5, MCV 92.3, MCH 31.3 H, MCHC 33.9, RDW 13.7, Plt Count 147, MPV 8.2, Neut % (Auto) 78.3, Lymph % (Auto) 14.4, [place] % (Auto) 6.1, Eos % (Auto) 0.8, Baso % (Auto) 0.4, Neut # (Auto) 7.2, Lymph # (Auto) 1.3, [place] # (Auto) 0.6, Eos # (Auto) 0.1, Baso # (Auto) 0.0, Sodium 137, Potassium 3.5, Chloride 106, Carbon Dioxide 25, Anion Gap 9.5, BUN 13 D, Creatinine 1.10, Estimated Creat Clear 92, Estimated GFR 65, Est GFR ( Amer) 79, Glucose 120 H, Calcium 8.2 L, Magnesium 2.0, Total Bilirubin 1.8 H, AST 131 H D, ALT 33 D, Alkaline Phosphatase 63, Total Protein 6.8, Albumin 3.9, Globulin 2.9, Albumin/Globulin Ratio 1.3 I & O for Last 24 hours: Intake & Output 04/12/23 04/13/23 04/14/23 04/15/23 23:59 23:59 23:59 23:59 Intake Total 270 / 270 180 / 180 Output Total 1250 / 1250 725 / 725 Balance -980 / -980 -545 / -545 Weight 245 lb 4 oz 247 lb 3 oz Constitutional Constitutional: no acute distress *Routine Respiratory Exam Respiratory: Present CTA bilaterally and symmetric chest movement *Routine Cardiovascular Exam Cardiovascular: Present RRR, Normal S1 and Normal S2 *Routine Abdominal Exam Abdominal: Present soft and normoactive bowel sounds; Absent tenderness *Routine Extremities Exam Extremities: Present full ROM and normal capillary refill; Absent edema *Routine Skin Exam Skin: Present intact, dry and warm Detailed Neck Exam: Thyroids Thyroid: Absent bruit Meds Home Medications and Allergies Home Medications Medication Instructions Recorded Confirmed Type pantoprazole 40 mg tablet,delayed 40 mg PO DAILY 01/01/21 04/14/23 History release tamsulosin 0.4 mg capsule 0.4 mg PO DAILY 01/01/21 04/14/23 History aspirin 81 mg chewable tablet 81 mg PO DAILY 30 days #30 tabs 04/14/23 Rx (Yoselin Chewable Low Dose Aspirin) atorvastatin 20 mg tablet (Lipitor) 20 mg PO HS 30 days #30 tabs 04/14/23 Rx clopidogrel 75 mg tablet (Plavix) 75 mg PO DAILY 30 days #30 tabs 04/14/23 Rx metoprolol succinate 100 mg 100 mg PO DAILY 30 days #30 tabs 04/14/23 Rx tablet,extended release 24 hr (Toprol XL) amlodipine 10 mg tablet 5 mg PO DAILY 30 days #0 tabs 04/15/23 04/14/23 Rx finasteride 5 mg tablet 5 mg PO DAILY 30 days #30 tabs 04/15/23 Rx irbesartan 150 mg tablet 150 mg PO DAILY 30 days #30 tabs 04/15/23 Rx isosorbide mononitrate 30 mg 30 mg PO DAILY 30 days #30 tabs 04/15/23 Rx tablet,extended release 24 hr New Prescriptions to Start Prescriptions: aspirin [Yoselin Chewable Aspirin] Tono Coleman atorvastatin [Lipitor] Tono Coleman clopidogrel [Plavix] Tono Coleman finasteride Servando,Regan irbesartan Servando,Regan isosorbide mononitrate Servando,Regan metoprolol succinate [Toprol XL] Tono Coleman Allergies Allergy/AdvReac Type Severity Reaction Status Date / Time No Known Allergies Allergy Verified 01/02/22 09:19 Assessment and Plan *Assessment and plan (1) HTN (hypertension): Status: Chronic Qualifiers: Hypertension type: primary hypertension Qualified Code(s): I10 - Essential (primary) hypertension Category: Medical Code(s): I10 - Essential (primary) hypertension (2) HLD (hyperlipidemia): Status: Chronic Qualifiers: Hyperlipidemia type: mixed hyperlipidemia Qualified Code(s): E78.2 - Mixed hyperlipidemia Category: Medical Code(s): E78.5 - Hyperlipidemia, unspecified (3) CAD (coronary artery disease): Status: Acute Category: Medical Code(s): I25.10 - Atherosclerotic heart disease of [place] coronary artery without angina pectoris (4) NSTEMI (non-ST elevated myocardial infarction): Status: Acute Category: Medical Code(s): I21.4 - Non-ST elevation (NSTEMI) myocardial infarction Plan Coronary artery disease NSTEMI -Underwent left heart catheterization 04/14/2023: Infarct vessel likely off the first obtuse marginal artery which is occluded and will continue to be treated medically. Chronic disease noted see cath report -Echo 04/14/2023 shows normal LV systolic function with moderate RV dilation and mild reduction in RV systolic function. Mild TR, elevated RVSP 35 -Continue DAPT therapy with aspirin 81 mg p.o. daily and Plavix 75 mg p.o. daily, metoprolol succinate 100 mg p.o. daily, atorvastatin 80 mg p.o. daily, and isosorbide mononitrate 30 mg p.o. daily. -Cardiac rehab Hyperlipidemia -LDL goal less than 55, continue atorvastatin 80 mg p.o. daily Hypertension -Continue metoprolol succinate 100 mg p.o. daily, irbesartan 150 mg p.o. daily and amlodipine 5 mg p.o. daily CV summary 04/15/2023: CV stable for discharge home. Please continue above listed medications and have patient follow-up in cardiology clinic in 1 week for reevaluation.
--- NOTE | 2023-04-16 13:21 | CARE MANAGER ---
Contacted patient related to hospital discharge. He states he is doing well. He has all his medications and is aware of follow up appointments. RAHEL Giles
== END 2023-04-15 12:35 | disposition home or self-care (01) ==
LOC: ER 06:23 → 2ND 06:36
PROVIDERS: Internal Medicine; Internal Medicine Adolescent Medicine; Admitting Provider Internal Medicine; Emergency Provider Emergency Medicine; Visit Provider Internal Medicine
DX: I21.4 Non-ST elevation (NSTEMI) myocardial infarction (principal); N40.1 Benign prostatic hyperplasia with lower urinary tract symptoms; K21.9 Gastro-esophageal reflux disease without esophagitis; I10 Essential (primary) hypertension; E78.2 Mixed hyperlipidemia; I25.10 Atherosclerotic heart disease of native coronary artery without angina pectoris; I25.110 Atherosclerotic heart disease of native coronary artery with unstable angina pectoris
CPT/HCPCS: 36415; 71045; 80053; 83735; 84484; 85025; 85378; 87636; 93005; 93306; 93458; 99152; 99153; 99285; C1725; C1760; C1769; G0378; J1644; Q9967

== ENCOUNTER 2023-04-23 15:23 | Outpatient (CLI) | payer MEDICARE, OTHER, SELFPAY ==
[2023-04-23 15:44] LABS: Basophils # 0.1 K/mm3 (0-0.2); Basophils % 0.7 % (0.1-2.0); Eosinophils # 0.3 K/mm3 (0.0-0.4); Eosinophils % 3.5 % (0.1-12.0); Hematocrit 43.5 % (42.0-52.0); Hemoglobin 14.5 g/dL (14.1-18.0); Lymphocytes # 1.8 K/mm3 (0.7-4.5); Lymphocytes % 22.1 % (10-50); Mean Corpuscular HGB Conc 33.4 g/dL (31.8-35.4); Mean Corpuscular Hemoglobin 31.3 pg (27.0-31.2); Mean Corpuscular Volume 93.7 fl (80-94); Mean Platelet Volume 8.4 fl (7.4-10.4); Monocytes # 0.5 K/mm3 (0.1-1.0); Monocytes % 6.8 % (1.7-9.3); Neutrophils # 5.3 K/mm3 (1.8-7.8); Neutrophils % 66.9 % (37.0-80.0); Platelet Count 192 K/mm3 (142-424); Red Blood Count 4.64 M/mm3 (4.60-6.20); Red Cell Distribution Width 13.5 % (11.5-17.5); White Blood Count 7.9 K/mm3 (4.8-10.8)
[2023-04-23 16:02] LABS: Chloride 103 mmol/L (98-107); Potassium 4.1 mmoL/L (3.5-5.1); Sodium 142 mmol/L (136-145)
[2023-04-23 16:04] LABS: Bilirubin,Unconjugated 1.2 mg/dL (0.0-1.1); Blood Urea Nitrogen 16 mg/dl (9-20); Estimated Glomerular Filt Rate 65 ml/min (>60); GFR (African American) 79 ML/MIN (>60)
[2023-04-23 16:05] LABS: Alanine Aminotransferase 20 U/L (12-78); Albumin Level 3.8 g/dl (3.5-5.0); Alkaline Phosphatase 70 U/L (38-126); Anion Gap 13.1 mEq/L (5-15); Aspartate Amino Transferase 23 U/L (17-59); Bilirubin,Indirect 1.2 mg/dL (0.0-0.9); Bilirubin,Total 1.2 mg/dl (0.2-1.3); Calcium 8.1 mg/dl (8.4-10.2); Carbon Dioxide 30 mmol/L (22.0-30.0); Chol/HDL Ratio 4.3 (1-3.5); Cholesterol 125 mg/dl (140-200); Glucose 93 mg/dl (74-100); HDL Cholesterol 29 mg/dl (40-60); Total Protein,Serum 6.5 g/dl (6.3-8.2); Triglycerides 204 mg/dl (30-150); VLDL Cholesterol 41 mg/dL (0-40)
[2023-04-23 16:16] LABS: Direct LDL Cholesterol 67.97 mg/dL (100-129)
== END 2023-04-23 23:59 ==
LOC: LAB 15:26
PROVIDERS: PCP Nurse Practitioner Family; Visit Provider Nurse Practitioner
DX: E78.5 Hyperlipidemia, unspecified (principal); I10 Essential (primary) hypertension
CPT/HCPCS: 36415; 80048; 80061; 80076; 85025

== ENCOUNTER 2023-05-27 09:51 | Outpatient (RCR) | payer MEDICARE, OTHER, SELFPAY | END 2023-08-27 10:00 | disposition home or self-care (01) | LOC: PT 09:51 | PROVIDERS: Visit Provider Internal Medicine | DX: I25.118 Atherosclerotic heart disease of native coronary artery with other forms of angina pectoris (principal) | CPT/HCPCS: 93798 ==

== ENCOUNTER 2023-05-27 10:32 | Outpatient (CLI) | payer MEDICARE, SELFPAY ==
[2023-05-27 11:33] LABS: Chloride 106 mmol/L (98-107); Sodium 139 mmol/L (136-145)
[2023-05-27 11:34] LABS: Potassium 4.6 mmoL/L (3.5-5.1)
[2023-05-27 11:36] LABS: Blood Urea Nitrogen 20 mg/dl (9-20); Estimated Glomerular Filt Rate 54 ml/min (>60); GFR (African American) 65 ML/MIN (>60)
[2023-05-27 11:37] LABS: Anion Gap 8.6 mEq/L (5-15); Calcium 8.7 mg/dl (8.4-10.2); Carbon Dioxide 29 mmol/L (22.0-30.0); Glucose 112 mg/dl (74-100)
== END 2023-05-27 23:59 ==
LOC: LAB 10:33
PROVIDERS: PCP Nurse Practitioner Family; Visit Provider Nurse Practitioner Family
DX: I25.10 Atherosclerotic heart disease of native coronary artery without angina pectoris (principal)
CPT/HCPCS: 36415; 80048

== ENCOUNTER 2023-06-11 11:17 | Outpatient (CLI) | payer MEDICARE, OTHER, SELFPAY ==
[2023-06-11 12:08] LABS: Anion Gap 10.6 mEq/L (5-15); Blood Urea Nitrogen 18 mg/dl (9-20); Calcium 8.8 mg/dl (8.4-10.2); Carbon Dioxide 31 mmol/L (22.0-30.0); Chloride 104 mmol/L (98-107); Estimated Glomerular Filt Rate 65 ml/min (>60); GFR (African American) 79 ML/MIN (>60); Glucose 96 mg/dl (74-100); Potassium 4.6 mmoL/L (3.5-5.1); Sodium 141 mmol/L (136-145)
== END 2023-06-11 23:59 ==
PROVIDERS: PCP Nurse Practitioner Family; Visit Provider Nurse Practitioner Family
DX: R94.30 Abnormal result of cardiovascular function study, unspecified; R94.31 Abnormal electrocardiogram [ECG] [EKG]; I20.89 Other forms of angina pectoris
CPT/HCPCS: 36415; 80048

== ENCOUNTER 2023-06-30 04:32 | Inpatient (IN) | payer MEDICARE, OTHER, SELFPAY ==
[2023-06-30] VITALS (27 sets, daily range): BP systolic 97–147; BP diastolic 64–89; PULSE 49–67; RESP 14–21; TEMP 36.4–37; O2SAT 91–96; BMI 32.1
--- NOTE | 2023-06-30 04:30 | ECG_ITS ---
APPROVED REPORT Exam: Resting ECG HR:52 bpm ECG Measurements Heart Rate 52 AXES AK 232 P 52 QRSd 98 QRS 14 QT 443 T -16 QTc 422 Conclusion SINUS BRADYCARDIA WITH FIRST DEGREE AV BLOCK Acute VT with high lateral ischemic change Electronically signed by : LUCHO BRADFORD, 06/30/2023 05:37:09
--- NOTE | 2023-06-30 04:36 | XR_ITS ---
PROCEDURE INFORMATION: Exam: XR Chest Exam date and time: 06/30/2023 4:41 AM Age: 78 years old Clinical indication: Pain; Chest pressure; Additional info: Chest pain TECHNIQUE: Imaging protocol: Radiologic exam of the chest. Views: 1 view. COMPARISON: CR XR CHEST PORTABLE 04/14/2023 3:42 AM FINDINGS: Lungs: Unremarkable. No consolidation. Pleural spaces: Unremarkable. No pleural effusion. No pneumothorax. Heart/Mediastinum: Unremarkable. No cardiomegaly. Bones/joints: Unremarkable. IMPRESSION: No acute findings.
--- NOTE | 2023-06-30 04:36 | ECG_ITS ---
APPROVED REPORT Exam: Resting ECG HR:50 bpm ECG Measurements Heart Rate 50 AXES NC 224 P 32 QRSd 104 QRS 5 QT 441 T -22 QTc 415 Conclusion SINUS BRADYCARDIA WITH FIRST DEGREE AV BLOCK Posterior lead placement Acute high lateral STEMI Electronically signed by : LUCHO BRADFORD, 06/30/2023 05:36:44
[2023-06-30] MEDS: HEPARIN SODIUM 5,000 UNIT/ML VIAL 11100 UNIT IV (04:42)
[2023-06-30 04:43] LABS: Basophils # 0.1 K/mm3 (0-0.2); Basophils % 1.5 % (0.1-2.0); Eosinophils # 0.3 K/mm3 (0.0-0.4); Eosinophils % 3.7 % (0.1-12.0); Hematocrit 50.3 % (42.0-52.0); Hemoglobin 16.5 g/dL (14.1-18.0); Lymphocytes # 2.8 K/mm3 (0.7-4.5); Lymphocytes % 37.1 % (10-50); Mean Corpuscular HGB Conc 32.7 g/dL (31.8-35.4); Mean Corpuscular Hemoglobin 31.7 pg (27.0-31.2); Mean Corpuscular Volume 96.9 fl (80-94); Mean Platelet Volume 8.1 fl (7.4-10.4); Monocytes # 0.5 K/mm3 (0.1-1.0); Monocytes % 6.8 % (1.7-9.3); Neutrophils # 3.8 K/mm3 (1.8-7.8); Neutrophils % 50.9 % (37.0-80.0); Platelet Count 175 K/mm3 (142-424); Red Blood Count 5.18 M/mm3 (4.60-6.20); Red Cell Distribution Width 14.1 % (11.5-17.5); White Blood Count 7.4 K/mm3 (4.8-10.8)
[2023-06-30] MEDS: ASPIRIN 81MG CHEWABLE TABLET 324 MG PO (04:43)
[2023-06-30 04:45] LABS: Chloride 107 mmol/L (98-107); Potassium 3.7 mmoL/L (3.5-5.1); Sodium 138 mmol/L (136-145)
--- NOTE | 2023-06-30 04:45 | PC.NURSE ---
Dr. King spoke with hospitalist regarding admission after heart catheterization.
--- NOTE | 2023-06-30 04:46 | ED_ITS ---
Discharge Plan Disposition Patient Disposition: Admitted Prescriptions Prescriptions: No Action pantoprazole 40 mg tablet,delayed release (DR/EC) 40 mg PO DAILY tamsulosin 0.4 mg capsule 0.4 mg PO DAILY amlodipine 10 mg tablet 10 mg PO DAILY Qty: 90 3RF isosorbide mononitrate 60 mg tablet extended release 24 hr 60 mg PO DAILY Qty: 90 3RF furosemide [Lasix] 20 mg tablet 40 mg PO DAILY Qty: 180 1RF atorvastatin [Lipitor] 20 mg Tablet 20 mg PO HS 30 Days Qty: 30 6RF metoprolol succinate [Toprol XL] 100 mg Tablet Extended Release 24 Hr 100 mg PO DAILY 30 Days Qty: 30 6RF clopidogrel [Plavix] 75 mg Tablet 75 mg PO DAILY 30 Days Qty: 30 6RF aspirin [Yoselin Chewable Aspirin] 81 mg Tablet,Chewable 81 mg PO DAILY 30 Days Qty: 30 6RF finasteride 5 mg Tablet 5 mg PO DAILY 30 Days Qty: 30 0RF Clinical Impressions Clinical Impression: ST elevation (STEMI) myocardial infarction, Chest pain Discharge ED Provider: Ivonne King HPI General Chief Complaint: Chest Pain Stated Complaint: Chest pain Time Seen by Provider: 06/30/23 04:34 Mode of Arrival: Ambulatory Source of Information: Patient and Relative Limitations: No Limitations Description of Symptoms (Recalled from ER Triage Doc. by RN): Patient began having twinges of chest pain before bed last night and awoke at 0400 with left sided chest pain 10/10 that radiates down left arm. Patient had heart attack in the end of March with heart cath without stents. Patient is diaphoretic at triage. Denies nausea, vomiting. Some shortness of breath reported at this time. History of Present Illness HPI narrative: This patient is a 78-year-old male with a history of CAD on medical management with most recent catheterization in March (no stents placed at that time), hypertension, BPH, REJI, hyperlipidemia, and GERD presenting to the emergency department for evaluation with concern for chest pain. Patient states that he felt twinges of chest pain before bed last night, and he woke at 4:00 this morning with 10 out of 10 left-sided chest pain going down his left arm. He states that it feels similar to his prior heart attack that he had in March. He denies any fevers, chills, cough, congestion, abdominal pain, vomiting, change in bowel movements, or other concerns, but he does note associated shortness of breath. Related Data Home Medications Medication Instructions Recorded Confirmed pantoprazole 40 mg tablet,delayed 40 mg PO DAILY 01/01/21 06/01/23 release tamsulosin 0.4 mg capsule 0.4 mg PO DAILY 01/01/21 06/01/23 Previous Rx's Medication Instructions Recorded aspirin 81 mg chewable tablet 81 mg PO DAILY 30 days #30 tabs 04/14/23 (Yoselin Chewable Low Dose Aspirin) atorvastatin 20 mg tablet (Lipitor) 20 mg PO HS 30 days #30 tabs 04/14/23 clopidogrel 75 mg tablet (Plavix) 75 mg PO DAILY 30 days #30 tabs 04/14/23 metoprolol succinate 100 mg 100 mg PO DAILY 30 days #30 tabs 04/14/23 tablet,extended release 24 hr (Toprol XL) finasteride 5 mg tablet 5 mg PO DAILY 30 days #30 tabs 04/15/23 amlodipine 10 mg tablet 10 mg PO DAILY #90 tabs 05/04/23 isosorbide mononitrate 60 mg 60 mg PO DAILY #90 tabs 05/04/23 tablet,extended release 24 hr furosemide 20 mg tablet (Lasix) 40 mg (2 x 20 mg) PO DAILY #180 06/01/23 tabs Allergies Allergy/AdvReac Type Severity Reaction Status Date / Time irbesartan Allergy Unknown Verified 06/01/23 10:14 allergy reaction [facility] Disclaimer: The information contained in this section may have been updated after the patient was seen, as this information can be updated by other users. Medical History Elevated left ventricular end-diastolic pressure (LVEDP) Angina pectoris Abnormal electrocardiogram [ECG] [EKG] CAD (coronary artery disease) History of left heart catheterization BPH (benign prostatic hyperplasia) GERD (gastroesophageal reflux disease) HLD (hyperlipidemia) HTN (hypertension) Screening PSA (prostate specific antigen) BPH loc w urin obs/LUTS Surgical History History of appendectomy Family History Other Unknown family medical history Social History Smoking Status: Never smoker alcohol intake: never substance use type: denies use current occupational status: retired Travel in the last 8 weeks: None household members: spouse housing: house ROS Obtained: Yes All systems reviewed & no additional complaints except as documented Physical Exam General General appearance: alert and obese Comment: Uncomfortable appearing Head Head exam: atraumatic and normocephalic Eye Eye exam: Present normal appearance, PERRL and EOMI ENT ENT exam: Present normal exam, normal oropharynx, mucous membranes moist and normal external ear exam Neck Neck exam: Present normal inspection, full ROM and trachea midline; Absent tenderness Chest Chest inspection: Present normal inspection and symmetric chest wall rise; Absent tenderness Respiratory Respiratory exam: Present normal lung sounds bilaterally; Absent respiratory distress, wheezes, stridor or accessory muscle use Cardiovascular Cardiovascular exam: Present normal rhythm and bradycardia Abdominal Exam Abdominal exam: Present soft; Absent distention, tenderness or guarding Extremities Exam Extremities exam: Present normal inspection, full ROM and normal capillary refill; Absent tenderness or edema Back Exam Back exam: Present normal inspection and full ROM; Absent tenderness Neurological Exam Neurological exam: Present alert, oriented X3, CN II-XII intact and normal gait; Absent motor sensory deficit Psychiatric Psychiatric exam: Present normal affect and normal mood Skin Skin exam: Present warm and dry HEART Score HEART Score HEART Score assessment performed?: No History (anamnesis): Highly suspicious ECG: Significant ST-deviation Age: >65 years Risk factors: Atherosclerosis history Critical Care Critical Care Time Critical Care Time: Yes Attestation: On 06/30/23, the high probability of a clinically significant, sudden or life threatening deterioration of the following system(s) required my full and direct attention, intervention and personal management. The time I documented below is in addition to time spent performing reported procedures but includes the following listed in this critical care notation. Total Time Total Critical Care Time: 30 Medical Decision Making Medical Records Medical records reviewed: Yes I reviewed the patient's medical records. Mani Inquiry Pt receiving controlled substance: No Vital Signs Vital Signs: 06/30/23 04:32 06/30/23 04:34 06/30/23 05:01 Temperature 97.6 F Temperature Source Oral Pulse Rate 53 L 49 L Pulse Rate [Left Radial] 56 L Respiratory Rate 14 15 16 Blood Pressure 131/76 110/88 Blood Pressure [Right Arm] 131/76 Blood Pressure Mean 94 Blood Pressure Mean [Right Arm] 94 Blood Pressure Source Blood Pressure Source [Right Arm] Automatic Cuff Blood Pressure Position Blood Pressure Position [Right Arm] Sitting 02 Sat by Pulse Oximetry 95 94 L 95 Oxygen Delivery Method Room Air Room Air Nasal Cannula Oxygen Flow Rate (LPM) 06/30/23 05:05 06/30/23 05:10 06/30/23 05:15 Temperature Temperature Source Pulse Rate 55 L 51 L 51 L Pulse Rate [Left Radial] Respiratory Rate 14 17 19 Blood Pressure 117/77 114/72 116/72 Blood Pressure [Right Arm] Blood Pressure Mean 87 82 86 Blood Pressure Mean [Right Arm] Blood Pressure Source Blood Pressure Source [Right Arm] Blood Pressure Position Blood Pressure Position [Right Arm] 02 Sat by Pulse Oximetry 96 95 95 Oxygen Delivery Method Nasal Cannula Nasal Cannula Nasal Cannula Oxygen Flow Rate (LPM) 2 06/30/23 05:32 Temperature 97.6 F Temperature Source Oral Pulse Rate 51 L Pulse Rate [Left Radial] Respiratory Rate 19 Blood Pressure 110/88 Blood Pressure [Right Arm] Blood Pressure Mean Blood Pressure Mean [Right Arm] Blood Pressure Source Automatic Cuff Blood Pressure Source [Right Arm] Blood Pressure Position Sitting Blood Pressure Position [Right Arm] 02 Sat by Pulse Oximetry Oxygen Delivery Method Nasal Cannula Oxygen Flow Rate (LPM) 2 Lab Data Labs: Lab Results 06/30/23 04:35: WBC 7.4, RBC 5.18, Hgb 16.5, Hct 50.3, MCV 96.9 H, MCH 31.7 H, MCHC 32.7, RDW 14.1, Plt Count 175, MPV 8.1, Neut % (Auto) 50.9, Lymph % (Auto) 37.1, [place] % (Auto) 6.8, Eos % (Auto) 3.7, Baso % (Auto) 1.5, Neut # (Auto) 3.8, Lymph # (Auto) 2.8, [place] # (Auto) 0.5, Eos # (Auto) 0.3, Baso # (Auto) 0.1, PT 11.3, INR 1.05, APTT 23.7, Sodium 138, Potassium 3.7, Chloride 107, Carbon Dioxide 27, Anion Gap 7.7, BUN 18, Creatinine 1.20, Estimated Creat Clear 82, Estimated GFR 59, Est GFR ( Amer) 71, Glucose 166 H, Calcium 8.7, Total Bilirubin 1.6 H, AST 26, ALT 23, Alkaline Phosphatase 81, Troponin I < 0.01, N T-Pro-B Natriuret Pep 507 H, Total Protein 7.0, Albumin 4.1, Globulin 2.9, Albumin/Globulin Ratio 1.4 06/30/23 04:35 06/30/23 04:35 Response Orders (Tests/Meds): ED MEDICATIONS Discontinued Medications Generic Name Dose Route Start Last Admin Trade Name Freq PRN Reason Stop Dose Admin Aspirin 324 mg 06/30/23 04:36 06/30/23 04:43 Aspirin 81mg Chewable Tablet PO 06/30/23 04:37 324 mg ONCE ONE Administration Clopidogrel Bisulfate 75 mg 06/30/23 04:48 06/30/23 04:52 Clopidogrel 75mg Tab PO 06/30/23 04:49 75 mg ONCE ONE Administration Diphenhydramine HCl 50 mg 06/30/23 05:00 Diphenhydramine 50mg/Ml Vial IV 06/30/23 05:01 ONCE ONE Fentanyl Citrate 50 mcg 06/30/23 05:00 Fentanyl 100mcg/2ml Vial IV 06/30/23 17:00 Q3MINP PRN Moderate to Severe Pain (4-10) Fentanyl Citrate 25 mcg 06/30/23 05:00 Fentanyl 250mcg/5ml Vial IV 06/30/23 17:00 Q3MINP PRN Moderate to Severe Pain (4-10) Fentanyl Citrate 50 mcg 06/30/23 05:00 Fentanyl 250mcg/5ml Vial IV 06/30/23 17:00 Q3MINP PRN Moderate to Severe Pain (4-10) Fentanyl Citrate 25 mcg 06/30/23 05:00 Fentanyl 100mcg/2ml Vial IV 06/30/23 17:00 Q3MINP PRN Moderate to Severe Pain (4-10) Flumazenil 0.2 mg 06/30/23 05:00 Flumazenil 0.1mg/Ml 5ml Vial IV 06/30/23 17:00 NEEDED PRN Sedation Heparin Sodium (Porcine) 11,100 unit 06/30/23 04:37 06/30/23 04:42 Heparin Sodium 5,000 Unit/Ml Vial 100 unit/kg (72835 unit) 06/30/23 04:38 11,100 unit IV Administration ONCE ONE Heparin Sodium (Porcine) 10,000 unit 06/30/23 05:00 Heparin 1,000 Units/Ml 10ml Vial ([employer]) IV 06/30/23 09:00 NEEDED PRN Emergency Box Card Hand Heparin Sodium/Sodium Chloride 3,000 unit 06/30/23 05:00 Heparin 1,000 Units/500ml Ns ([employer]) IV 06/30/23 05:01 ONCE ONE Hydralazine HCl 20 mg 06/30/23 05:00 Hydralazine 20mg/Ml Vial IV 06/30/23 09:00 ONCE PRN sbp>160 Adenosine 180 mg/ Sodium 90 mls @ 597.656 mls/hr 06/30/23 05:00 Chloride IV 06/30/23 09:00 ONCE PRN fractional flow reserve 180 MCG/KG/MIN Adenosine 90 mg/ Sodium 90 mls @ 1,195.312 mls/hr 06/30/23 05:00 Chloride IV 06/30/23 09:00 ONCE PRN fractional flow reserve 180 MCG/KG/MIN Sodium Chloride 1,000 mls @ 25 mls/hr 06/30/23 05:00 Sod Chloride 0.9% 500ml Bag IV 07/01/23 05:00 .Q25H GIULIANA Labetalol HCl 20 mg 06/30/23 05:00 Labetalol 20mg/4ml Syringe IV 06/30/23 09:00 ONCE PRN sbp>160 Lidocaine HCl 20 ml 06/30/23 05:00 Lidocaine 1% 10ml Mdv IJ 06/30/23 05:01 ONCE ONE Lidocaine HCl 20 ml 06/30/23 05:00 Lidocaine 1% 5ml Pf Vial IJ 06/30/23 05:01 ONCE ONE Midazolam HCl 1 mg 06/30/23 05:00 Midazolam 2mg/2ml Vial IV 06/30/23 17:00 Q3MINP PRN Sedation Midazolam HCl 1 mg 06/30/23 05:00 Midazolam Hcl 1mg/1ml 5ml Vial IV 06/30/23 17:00 Q3MINP PRN Sedation Naloxone HCl 0.4 mg 06/30/23 05:00 Naloxone 0.4mg/Ml Vial IV 06/30/23 17:00 Q5MINP PRN Decreased Respirations Nitroglycerin 800 mcg 06/30/23 05:00 Nitroglycerin 800mcg/8ml Syr ([employer]) IA 06/30/23 09:00 NEEDED PRN Emergency Box Card Hand Protamine Sulfate 50 mg 06/30/23 05:00 Protamine Sulfate 50mg/5ml Vial ([employer]) IV 06/30/23 09:00 ONCE PRN act>200 Verapamil HCl 2.5 mg 06/30/23 05:00 Verapamil 2.5mg/Ml 2ml Vial IV 06/30/23 05:01 ONCE ONE ORDERS Category Date Time Status XR chest portable Stat Exams 06/30/23 04:36 Completed Activated Partial Thrombo Time Stat Lab 06/30/23 04:35 Completed Basic Metabolic Panel Stat Lab 06/30/23 05:00 Ordered Brain Natriuretic Peptide Stat Lab 06/30/23 04:35 Completed CBC w/Auto Diff [Complete Blood Count Auto Diff] Stat Lab 06/30/23 04:35 Completed Complete Blood Count Auto Diff Stat Lab 06/30/23 05:00 Ordered Comprehensive Metabolic Panel Stat Lab 06/30/23 04:35 Completed Prothrombin Time INR Stat Lab 06/30/23 04:35 Completed Troponin I Q3H Lab 06/30/23 07:45 Ordered Troponin I Stat Lab 06/30/23 04:35 Completed ECG Data Tracing #1: Attestation: I reviewed this ECG and interpreted as documented below: ECG Narrative: Sinus bradycardia with a ventricular rate of [address] elevations in lead I and aVL. ST depressions in 2, 3, and aVF. ECG initial impression date: 06/30/23 ECG initial impression time: 04:30 Ischemic changes: acute STEMI MDM Narrative Medical Decision Narrative: In summary, this patient is a 78-year-old male presenting to the Emergency Department for evaluation of chest pain radiating down his left arm. Differential diagnoses considered include but are not limited to STEMI, unstable angina, NSTEMI, GERD, costochondritis. Ruling out the most morbid conditions drove assessment. On exam, the patient is uncomfortable appearing. Vitals are reassuring on cardiac telemetry. EKG was obtained immediately upon arrival, and it is highly concerning for STEMI with ST elevations in lead I and aVL as well as depressions in leads II, III, and aVF. Posterior EKG was obtained shortly after arrival which demonstrated significant change with progression of the ST elevations in lead I and aVL as well as worsening depressions in leads III and aVF. I activated the [employer] and had an direct discussion with Dr. Coleman. Dr. Coleman advised administering the patient's Plavix as well as a 100 mg/kg bolus of heparin. These were ordered. Patient was also given aspirin load. Patient was transported to the [employer] in stable condition prior to results of any labs or imaging. This was done for definitive management of STEMI. While awaiting arrival of the cardiac catheterization team, labs resulted which demonstrated a negative initial troponin and no other acutely concerning abnormalities. I continued monitoring the patient while in the emergency department for approximately 45 minutes prior to initiation of care in the quality assurance lab technician. Care was transitioned in stable condition.
[2023-06-30 04:48] LABS: Alanine Aminotransferase 23 U/L (12-78); Albumin Level 4.1 g/dl (3.5-5.0); Albumin/Globulin Ratio 1.4 (1.1-1.8); Alkaline Phosphatase 81 U/L (38-126); Anion Gap 7.7 mEq/L (5-15); Aspartate Amino Transferase 26 U/L (17-59); Bilirubin,Total 1.6 mg/dl (0.2-1.3); Blood Urea Nitrogen 18 mg/dl (9-20); Carbon Dioxide 27 mmol/L (22.0-30.0); Creatinine Clearance Estimated 82 mL/min (50-200); Estimated Glomerular Filt Rate 59 ml/min (>60); GFR (African American) 71 ML/MIN (>60); Globulin 2.9 g/dL (1.3-3.2)
[2023-06-30 04:49] LABS: Calcium 8.7 mg/dl (8.4-10.2); Glucose 166 mg/dl (74-100)
--- NOTE | 2023-06-30 04:50 | PC.NURSE ---
Facilitated son at bedside at this time. Patient shaved for preparation of vp lab. Zoll pads already in place for vp lab at this time. Patient updated on plan of care at this time. Patient placed in gown, belongings placed in belongings bag.
[2023-06-30 04:51] LABS: Activated Partial Thrombo Time 23.7 seconds (22.8-30.6); INR 1.05 (0.9-1.1); Prothrombin Time 11.3 seconds (10.1-12.5)
[2023-06-30] MEDS: CLOPIDOGREL 75MG TAB 75 MG PO (04:52)
[2023-06-30 05:00] LABS: Troponin I < 0.01 ng/ml (0.00-0.034)
[2023-06-30 05:10] LABS: NT Pro Brain Natriuretic Pep. 507 pg/mL (0-450)
--- NOTE | 2023-06-30 05:10 | IR_ITS ---
APPROVED REPORT Patient Location: Emergent Patient Intake Coordinator: AUDI Wynn RT (R) PROCEDURES Selective coronary angiogram Drug-eluting stent deployment to the proximal large first diagonal artery INDICATION Acute ST elevation myocardial infarction, Coronary artery disease Informed consent was obtained prior to the procedure. COMPLICATIONS None Estimated Blood Loss: Less than 10 mls TECHNIQUE One percent lidocaine was used to anesthetize the right groin. The right femoral artery was accessed via the Seldinger technique. A 6 Yi sheath was placed in the right femoral artery and a 6 Yi JL 4 guide catheter was placed in the left main artery and angiography was performed. Therapeutic heparin already been administered. EKG demonstrated a high lateral myocardial infarction and a critical stenosis was identified in the first diagonal artery. A Choice PT extra-support wire was placed distally in the diagonal artery and a 2.25 x 12 mm Trey frontier stent was placed proximally at 12 karen reducing the critical stenosis to 0%. JOSE CRUZ II flow was present initially with JOSE CRUZ-3 flow at the end of the procedure. After stenting of the first diagonal artery and accelerated idioventricular rhythm occurred for approximately 1 minute. Following this the apparatus was removed and the JR4 guide catheter was used to perform right coronary angiography. At the end of the procedure after achieving excellent angiographic results the apparatus was removed the groin was reprepped closure change sheath was removed and hemostasis was achieved using Perclose device patient was transferred to the postoperative care in stable condition ANGIOGRAPHIC RESULTS The left main artery Normal The left anterior descending artery Is proximally normal followed by mid vessel 30 to 40% stenoses. There is a mid vessel concentric 70% stenosis and an area that is approximately 2.25 mm in diameter. The first diagonal artery has a proximal greater than 90% stenosis accompanied by JOSE CRUZ II flow The circumflex artery Is nondominant and has 60 to 70% stenosis and a very small first obtuse marginal artery The right coronary artery Is a dominant vessel has proximal 30% stenosis with mid vessel to distal 30 to 40% stenoses The RUBY ventriculogram reveals Was not performed The left ventricular end-diastolic pressure Was not measured IMPRESSION Acute high lateral ST elevation myocardial infarction Successful stenting of the first diagonal artery critical disease reduced to 0% with 1 drug-eluting stent PLAN 1. Dual antiplatelet therapy 2. Echocardiogram in the morning 3. Supportive care 4. LDL less than 55 to be achieved high intensity statin 5. Cardiac rehabilitation Electronically signed by : Tono Coleman MD 06/30/2023 05:53:19
--- NOTE | 2023-06-30 05:22 | PC.NURSE ---
Transported patient to curb and gutter laborer, accompanied by RN, house linux systems administrator, and patient career development counselor. Zoll monitor attached. Delivered patient EKGs and labels. Turned over care to curb and gutter laborer team.
[2023-06-30] MEDS: diphenhydrAMINE 50MG/ML VIAL 50 MG IV ×2 (05:29→05:38)
[2023-06-30] MEDS: HEPARIN 1,000 UNITS/500ML NS (CATH LAB) 3000 UNIT IV (05:38)
[2023-06-30] MEDS: 0.9 % SODIUM CHLORIDE 500 ML 25 ML IV (05:38)
[2023-06-30] MEDS: LIDOCAINE 1% 10ML MDV 20 ML IJ (05:39)
[2023-06-30] MEDS: MIDAZOLAM HCL 1MG/1ML 5ML VIAL 1 MG IV (05:49)
[2023-06-30] MEDS: FENTANYL 100MCG/2ML VIAL 50 MCG IV (05:49)
[2023-06-30] MEDS: IOPAMIDOL-370 (76%);100ML BOTTLE 95 ML IV (07:47)
[2023-06-30 07:53] LABS: CATHL Activated Clotting Time > 400 SEC (74-125)
--- NOTE | 2023-06-30 08:34 | HMH.PHAINT1 ---
Pharmacy Intervention Comments: HOME MEDICATION LIST VERIFIED USING LIST FROM OUTPATIENT PHARMACY AND CARDIOLOGY OFFICE NOTES
--- NOTE | 2023-06-30 09:37 | EXP.HP ---
History of Present Illness *Admission Date: 06/30/23 *Reason for visit:: chest pain *History of present illness: Patient is a 66-year-old male with past medical history of CAD, obstructive sleep apnea hyperlipidemia hypertension hyperlipidemia GERD who presented to hospital due to chest pain. According to patient she has been having chest pain since midnight, it was located in left lower chest, nonradiating denied association with nausea vomiting. At time of my evaluation patient is resting in bed, denies acute chest pain shortness of breath nausea vomiting diarrhea constipation dysuria fevers and chills. [facility] Disclaimer: The information contained in this section may have been updated after the patient was seen, as this information can be updated by other users. Medical History Elevated left ventricular end-diastolic pressure (LVEDP) Angina pectoris Abnormal electrocardiogram [ECG] [EKG] CAD (coronary artery disease) History of left heart catheterization BPH (benign prostatic hyperplasia) GERD (gastroesophageal reflux disease) HLD (hyperlipidemia) HTN (hypertension) Screening PSA (prostate specific antigen) BPH loc w urin obs/LUTS Surgical History History of appendectomy Family History Other Unknown family medical history Social History Smoking Status: Never smoker alcohol intake: never substance use type: denies use current occupational status: retired Travel in the last 8 weeks: None household members: spouse housing: house Review of Systems Review of Systems Review of systems (narrative): as per [facility] Meds Home Medications and Allergies Home Medications Medication Instructions Recorded Confirmed Type pantoprazole 40 mg tablet,delayed 40 mg PO DAILY 01/01/21 06/30/23 History release tamsulosin 0.4 mg capsule 0.4 mg PO DAILY 01/01/21 06/30/23 History aspirin 81 mg chewable tablet 81 mg PO DAILY 30 days #30 tabs 04/14/23 06/30/23 Rx (Yoselin Chewable Low Dose Aspirin) atorvastatin 20 mg tablet (Lipitor) 20 mg PO HS 30 days #30 tabs 04/14/23 06/30/23 Rx clopidogrel 75 mg tablet (Plavix) 75 mg PO DAILY 30 days #30 tabs 04/14/23 06/30/23 Rx metoprolol succinate 100 mg 100 mg PO DAILY 30 days #30 tabs 04/14/23 06/30/23 Rx tablet,extended release 24 hr (Toprol XL) amlodipine 10 mg tablet 10 mg PO DAILY #90 tabs 05/04/23 06/30/23 Rx isosorbide mononitrate 60 mg 60 mg PO DAILY #90 tabs 05/04/23 06/30/23 Rx tablet,extended release 24 hr furosemide 20 mg tablet (Lasix) 40 mg PO DAILY 06/30/23 06/30/23 History New Prescriptions to Start Prescriptions: Allergies Allergy/AdvReac Type Severity Reaction Status Date / Time irbesartan Allergy Unknown Verified 06/01/23 10:14 allergy reaction Exam Data for Last 24 hours Vital signs and Labs for Last 24 Hours: Temp Pulse Resp BP Pulse Ox O2 Del Method O2 Flow Rate 97.6 F 54 L 14 127/79 94 L Room Air 2 06/30/23 07:35 06/30/23 07:00 06/30/23 07:00 06/30/23 07:00 06/30/23 08:00 06/30/23 08:00 06/30/23 05:32 Laboratory Results - last 24 hr 06/30/23 04:35: WBC 7.4, RBC 5.18, Hgb 16.5, Hct 50.3, MCV 96.9 H, MCH 31.7 H, MCHC 32.7, RDW 14.1, Plt Count 175, MPV 8.1, Neut % (Auto) 50.9, Lymph % (Auto) 37.1, [place] % (Auto) 6.8, Eos % (Auto) 3.7, Baso % (Auto) 1.5, Neut # (Auto) 3.8, Lymph # (Auto) 2.8, [place] # (Auto) 0.5, Eos # (Auto) 0.3, Baso # (Auto) 0.1, PT 11.3, INR 1.05, APTT 23.7, Sodium 138, Potassium 3.7, Chloride 107, Carbon Dioxide 27, Anion Gap 7.7, BUN 18, Creatinine 1.20, Estimated Creat Clear 82, Estimated GFR 59, Est GFR ( Amer) 71, Glucose 166 H, Calcium 8.7, Total Bilirubin 1.6 H, AST 26, ALT 23, Alkaline Phosphatase 81, Troponin I < 0.01, NT-Pro-B Natriuret Pep 507 H, Total Protein 7.0, Albumin 4.1, Globulin 2.9, Albumin/Globulin Ratio 1.4 06/30/23 05:21: Activated Clotting Time > 400 H* I & O for Last 24 hours: Intake & Output 06/27/23 06/28/23 06/29/23 06/30/23 22:59 23:59 23:59 23:59 Output Total 150 / 150 Balance -150 / -150 Weight 110.677 kg Constitutional Constitutional: no acute distress *Routine HEENT Exam Head: Present normocephalic Eye: Present EOMI and PERRL ENT: Present mucous membranes moist *Routine Neck Exam Neck: Present supple; Absent lymphadenopathy *Routine Respiratory Exam Respiratory: Present CTA bilaterally *Routine Cardiovascular Exam Cardiovascular: Present RRR *Routine Abdominal Exam Abdominal: Present soft and normoactive bowel sounds; Absent tenderness *Routine Rectal Exam Rectal:: deferred *Routine Genitalia Exam Genitalia:: deferred *Routine Extremities Exam Extremities: Absent cyanosis, clubbing or edema *Routine Skin Exam Skin: Present warm; Absent rash *Routine Neurological Exam Neurological: Present alert and oriented X3 Assessment and Plan *Assessment and plan (1) ST elevation (STEMI) myocardial infarction: Status: Acute Category: Medical Code(s): I21.3 - ST elevation (STEMI) myocardial infarction of unspecified site (2) CAD (coronary artery disease): Status: Acute Qualifiers: Coronary Disease-Associated Artery/Lesion type: [place] artery [place] vs. transplanted heart: [place] heart Associated angina: with other forms of angina Qualified Code(s): I25.118 - Atherosclerotic heart disease of [place] coronary artery with other forms of angina pectoris Category: Medical Code(s): I25.10 - Atherosclerotic heart disease of [place] coronary artery without angina pectoris (3) HLD (hyperlipidemia): Status: Chronic Qualifiers: Hyperlipidemia type: mixed hyperlipidemia Qualified Code(s): E78.2 - Mixed hyperlipidemia Category: Medical Code(s): E78.5 - Hyperlipidemia, unspecified (4) HTN (hypertension): Status: Chronic Qualifiers: Hypertension type: primary hypertension Qualified Code(s): I10 - Essential (primary) hypertension Category: Medical Code(s): I10 - Essential (primary) hypertension (5) GERD (gastroesophageal reflux disease): Status: Chronic Qualifiers: Esophagitis presence: esophagitis presence not specified Qualified Code(s): K21.9 - Gastro-esophageal reflux disease without esophagitis Category: Medical Code(s): K21.9 - Gastro-esophageal reflux disease without esophagitis Plan Patient is a 66-year-old male with past medical history of CAD, obstructive sleep apnea hyperlipidemia hypertension hyperlipidemia GERD who presented to hospital due to chest pain. According to patient she has been having chest pain since midnight, it was located in left lower chest, nonradiating denied association with nausea vomiting. At time of my evaluation patient is resting in bed, denies acute chest pain shortness of breath nausea vomiting diarrhea constipation dysuria fevers and chills. Assessment and plan Chest pain likely ACS, STEMI S/p cardiac cath Cardiology was consulted from emergency department, patient is status post cardiac cath s/p stenting of first diagonal artery with 1 drug-eluting stent Started on dual antiplatelet therapy with aspirin and Plavix Echocardiogram Monitor on cardiac graphic editor and replace electrolytes CAD Hypertension Hyperlipidemia Resume home statin, metoprolol, Lasix, Imdur DVT prophylaxis-heparin
[2023-06-30] MEDS: FUROSEMIDE 20MG TABLET 40 MG PO (10:15)
[2023-06-30] MEDS: METOPROLOL SUCCINATE XL 100MG TABLET 100 MG PO (10:15)
[2023-06-30] MEDS: ISOSORBIDE MONO 60MG TAB.ER.24H 60 MG PO (10:15)
--- NOTE | 2023-06-30 10:47 | EXP.CARD.CON ---
History of Present Illness History of Present Illness Consult date: 06/30/23 Consult reason: chest pain Chief complaint: chest pain History of present illness: 78-year-old white male with past medical history of coronary artery disease, obstructive sleep apnea, hyperlipidemia, hypertension and GERD presented to hospital last night with complaint of chest pain that awoke him up from sleep. Patient reports pain was on the left side of chest, nonradiating, associated with some mild shortness of breath. Patient reports had similar episode earlier in the day during cardiac rehab. Upon presentation to emergency department patient was noted to have a STEMI on EKG and was taken to [facility] where he underwent stenting to his first diagonal artery with 1 drug-eluting stent. Patient was started on DAPT therapy and admitted for further evaluation. This morning patient is resting comfortably in bed, denies chest pain or shortness of breath. Echocardiogram is pending. [facility] Disclaimer: The information contained in this section may have been updated after the patient was seen, as this information can be updated by other users. Medical History Elevated left ventricular end-diastolic pressure (LVEDP) Angina pectoris Abnormal electrocardiogram [ECG] [EKG] CAD (coronary artery disease) History of left heart catheterization BPH (benign prostatic hyperplasia) GERD (gastroesophageal reflux disease) HLD (hyperlipidemia) HTN (hypertension) Screening PSA (prostate specific antigen) BPH loc w urin obs/LUTS Surgical History History of appendectomy Family History Other Unknown family medical history Social History Smoking Status: Never smoker alcohol intake: never substance use type: denies use current occupational status: retired Travel in the last 8 weeks: None household members: spouse housing: house Review of Systems *Cardiovascular Cardiovascular: Reports chest pain Exam Data for Last 24 hours Vital signs and Labs for Last 24 Hours: Temp Pulse Resp BP Pulse Ox O2 Del Method O2 Flow Rate 97.6 F 62 20 125/83 92 L Room Air 2 06/30/23 07:35 06/30/23 10:15 06/30/23 10:15 06/30/23 10:15 06/30/23 10:15 06/30/23 10:15 06/30/23 05:32 Laboratory Results - last 24 hr 06/30/23 04:35: WBC 7.4, RBC 5.18, Hgb 16.5, Hct 50.3, MCV 96.9 H, MCH 31.7 H, MCHC 32.7, RDW 14.1, Plt Count 175, MPV 8.1, Neut % (Auto) 50.9, Lymph % (Auto) 37.1, [place] % (Auto) 6.8, Eos % (Auto) 3.7, Baso % (Auto) 1.5, Neut # (Auto) 3.8, Lymph # (Auto) 2.8, [place] # (Auto) 0.5, Eos # (Auto) 0.3, Baso # (Auto) 0.1, PT 11.3, INR 1.05, APTT 23.7, Sodium 138, Potassium 3.7, Chloride 107, Carbon Dioxide 27, Anion Gap 7.7, BUN 18, Creatinine 1.20, Estimated Creat Clear 82, Estimated GFR 59, Est GFR ( Amer) 71, Glucose 166 H, Calcium 8.7, Total Bilirubin 1.6 H, AST 26, ALT 23, Alkaline Phosphatase 81, Troponin I < 0.01, NT-Pro-B Natriuret Pep 507 H, Total Protein 7.0, Albumin 4.1, Globulin 2.9, Albumin/Globulin Ratio 1.4 06/30/23 05:21: Activated Clotting Time > 400 H* I & O for Last 24 hours: Intake & Output 06/27/23 06/28/23 06/29/23 06/30/23 22:59 23:59 23:59 23:59 Output Total 150 / 150 Balance -150 / -150 Weight 244 lb Constitutional Constitutional: no acute distress *Routine Respiratory Exam Respiratory: Present CTA bilaterally and symmetric chest movement *Routine Cardiovascular Exam Cardiovascular: Present RRR, Normal S1 and Normal S2 *Routine Abdominal Exam Abdominal: Present soft and normoactive bowel sounds; Absent tenderness *Routine Extremities Exam Extremities: Present full ROM and normal capillary refill; Absent edema Comments: Right groin access site-dressing is dry and intact, no obvious bleeding or bruising present. Right lower extremity is pink and warm with positive pulses present *Routine Skin Exam Skin: Present intact, dry and warm Detailed Neck Exam: Thyroids Thyroid: Absent bruit Meds Home Medications and Allergies Home Medications Medication Instructions Recorded Confirmed Type pantoprazole 40 mg tablet,delayed 40 mg PO DAILY 01/01/21 06/30/23 History release tamsulosin 0.4 mg capsule 0.4 mg PO DAILY 01/01/21 06/30/23 History aspirin 81 mg chewable tablet 81 mg PO DAILY 30 days #30 tabs 04/14/23 06/30/23 Rx (Yoselin Chewable Low Dose Aspirin) atorvastatin 20 mg tablet (Lipitor) 20 mg PO HS 30 days #30 tabs 04/14/23 06/30/23 Rx clopidogrel 75 mg tablet (Plavix) 75 mg PO DAILY 30 days #30 tabs 04/14/23 06/30/23 Rx metoprolol succinate 100 mg 100 mg PO DAILY 30 days #30 tabs 04/14/23 06/30/23 Rx tablet,extended release 24 hr (Toprol XL) amlodipine 10 mg tablet 10 mg PO DAILY #90 tabs 05/04/23 06/30/23 Rx isosorbide mononitrate 60 mg 60 mg PO DAILY #90 tabs 05/04/23 06/30/23 Rx tablet,extended release 24 hr furosemide 20 mg tablet (Lasix) 40 mg PO DAILY 06/30/23 06/30/23 History New Prescriptions to Start Prescriptions: Allergies Allergy/AdvReac Type Severity Reaction Status Date / Time irbesartan Allergy Unknown Verified 06/01/23 10:14 allergy reaction Assessment and Plan *Assessment and plan (1) ST elevation (STEMI) myocardial infarction: Status: Acute Category: Medical Code(s): I21.3 - ST elevation (STEMI) myocardial infarction of unspecified site (2) CAD (coronary artery disease): Status: Acute Qualifiers: Associated angina: with other forms of angina Coronary Disease-Associated Artery/Lesion type: [place] artery [place] vs. transplanted heart: [place] heart Qualified Code(s): I25.118 - Atherosclerotic heart disease of [place] coronary artery with other forms of angina pectoris Category: Medical Code(s): I25.10 - Atherosclerotic heart disease of [place] coronary artery without angina pectoris (3) HLD (hyperlipidemia): Status: Chronic Qualifiers: Hyperlipidemia type: mixed hyperlipidemia Qualified Code(s): E78.2 - Mixed hyperlipidemia Category: Medical Code(s): E78.5 - Hyperlipidemia, unspecified (4) HTN (hypertension): Status: Chronic Qualifiers: Hypertension type: primary hypertension Qualified Code(s): I10 - Essential (primary) hypertension Category: Medical Code(s): I10 - Essential (primary) hypertension Plan Coronary artery disease STEMI -Patient underwent stenting to first diagonal with 1 [place] -Medical management heart cath March 2023 -Continue aspirin and Plavix -Continue beta-maciej and high-dose statin -Echocardiogram shows normal EF History of HFpEF -Echo 03/2023 shows normal ef with mild reduction in RV stystolic function and elevated RVSP of 35 -Repeat echo shows normal ef -BNP 507 chest x-ray negative for acute cardiopulmonary process -Continue lasix 40mg p.o. daily -Add jardiance 10mg p.o. daily Hypertension -Well-controlled Hyperlipidemia -LDL goal less than 55, LDL 67 in April 2023 continue statin. CV summary 06/30/2023: Continue to observe after STEMI for 48 hours. Cardiac meds Aspirin 81 mg p.o. daily Plavix 75 mg p.o. daily Metoprolol succinate 100 mg p.o. daily Imdur 60 mg p.o. daily Lasix 40 mg daily Jardiance 10 mg daily
[2023-06-30] MEDS: PANTOPRAZOLE 40MG TABLET 40 MG PO (20:13)
[2023-06-30] MEDS: TAMSULOSIN 0.4MG CAPSULE 0.400000000000000022 MG PO (20:13)
[2023-06-30] MEDS: ATORVASTATIN 40MG TABLET 40 MG PO (20:13)
[2023-07-01] VITALS: BP 123/71; PULSE 60; RESP 17; TEMP 36.6; O2SAT 91
[2023-07-01 02:03] VITALS: PULSE 61
[2023-07-01 04:00] VITALS: BP 118/71; PULSE 62; PULSE 95; RESP 16; TEMP 36.6; O2SAT 94; BMI 32.3
[2023-07-01 06:41] LABS: Basophils # 0.1 K/mm3 (0-0.2); Basophils % 0.9 % (0.1-2.0); Eosinophils # 0.2 K/mm3 (0.0-0.4); Eosinophils % 2.1 % (0.1-12.0); Hematocrit 46.2 % (42.0-52.0); Hemoglobin 15.1 g/dL (14.1-18.0); Lymphocytes # 1.6 K/mm3 (0.7-4.5); Lymphocytes % 22.7 % (10-50); Mean Corpuscular HGB Conc 32.7 g/dL (31.8-35.4); Mean Corpuscular Volume 97.8 fl (80-94); Mean Platelet Volume 8.5 fl (7.4-10.4); Monocytes # 0.5 K/mm3 (0.1-1.0); Monocytes % 6.4 % (1.7-9.3); Neutrophils # 4.8 K/mm3 (1.8-7.8); Platelet Count 132 K/mm3 (142-424); Red Blood Count 4.73 M/mm3 (4.60-6.20); Red Cell Distribution Width 14.4 % (11.5-17.5); White Blood Count 7.1 K/mm3 (4.8-10.8)
[2023-07-01 07:20] LABS: Anion Gap 10.9 mEq/L (5-15); Blood Urea Nitrogen 22 mg/dl (9-20); Calcium 8.6 mg/dl (8.4-10.2); Carbon Dioxide 26 mmol/L (22.0-30.0); Chloride 106 mmol/L (98-107); Creatinine Clearance Estimated 76 mL/min (50-200); Estimated Glomerular Filt Rate 54 ml/min (>60); GFR (African American) 65 ML/MIN (>60); Glucose 107 mg/dl (74-100); Potassium 3.9 mmoL/L (3.5-5.1); Sodium 139 mmol/L (136-145)
[2023-07-01 08:00] VITALS: BP 151/93; PULSE 70; RESP 18; TEMP 36.9; O2SAT 98
[2023-07-01] MEDS: CLOPIDOGREL 75MG TAB 75 MG PO (09:42)
[2023-07-01] MEDS: FUROSEMIDE 40 MG TABLET PO (09:42)
[2023-07-01] MEDS: ASPIRIN EC 81MG TABLET 81 MG PO (09:42)
[2023-07-01] MEDS: METOPROLOL SUCCINATE XL 100MG TABLET 100 MG PO (09:42)
[2023-07-01] MEDS: ISOSORBIDE MONO 60MG TAB.ER.24H 60 MG PO (09:42)
--- NOTE | 2023-07-01 10:03 | P.PN_ITS ---
Subjective Subjective Date: 07/01/23 Time: 08:00 Principal diagnosis: STEMI Interval history: Patient doing well this morning denies chest pain or shortness of breath. Requesting to go home. Vitals remained stable. Morning labs reviewed Exam Data for Last 24 hours Vital signs and Labs for Last 24 Hours: Temp Pulse Resp BP Pulse Ox O2 Del Method O2 Flow Rate 98.5 F 70 18 151/93 H 98 Room Air 2 07/01/23 08:00 07/01/23 08:00 07/01/23 08:00 07/01/23 08:00 07/01/23 08:00 07/01/23 09:15 07/01/23 08:00 Laboratory Results - last 24 hr 07/01/23 05:40: WBC 7.1, RBC 4.73, Hgb 15.1, Hct 46.2, MCV 97.8 H, MCH 32.0 H, MCHC 32.7, RDW 14.4, Plt Count 132 L, MPV 8.5, Neut % (Auto) 68.0, Lymph % (Auto) 22.7, [place] % (Auto) 6.4, Eos % (Auto) 2.1, Baso % (Auto) 0.9, Neut # (Auto) 4.8, Lymph # (Auto) 1.6, [place] # (Auto) 0.5, Eos # (Auto) 0.2, Baso # (Auto) 0.1, Sodium 139, Potassium 3.9, Chloride 106, Carbon Dioxide 26, Anion Gap 10.9, BUN 22 H, Creatinine 1.30 H, Estimated Creat Clear 76, Estimated GFR 54 L, Est GFR ( Amer) 65, Glucose 107 H, Calcium 8.6 I & O for Last 24 hours: Intake & Output 06/28/23 06/29/23 06/30/23 07/01/23 23:59 23:59 23:59 23:59 Intake Total 510 / 510 420 / 420 Output Total 450 / 450 0 / 0 Balance 60 / 60 420 / 420 Weight 244 lb 244 lb 0.016 oz Constitutional Constitutional: no acute distress *Routine Respiratory Exam Respiratory: Present CTA bilaterally and symmetric chest movement *Routine Cardiovascular Exam Cardiovascular: Present RRR, Normal S1 and Normal S2 *Routine Abdominal Exam Abdominal: Present soft and normoactive bowel sounds; Absent tenderness *Routine Extremities Exam Extremities: Present full ROM and normal capillary refill; Absent edema *Routine Skin Exam Skin: Present intact, dry and warm Detailed Neck Exam: Thyroids Thyroid: Absent bruit Progress Note: A&P Assessment and plan (1) ST elevation (STEMI) myocardial infarction: Status: Acute (2) CAD (coronary artery disease): Status: Acute (3) HLD (hyperlipidemia): Status: Chronic (4) HTN (hypertension): Status: Chronic Assessment and Plan Assessment and Plan for All Diagnoses:: Coronary artery disease STEMI -Patient underwent stenting to first diagonal with 1 [place] -Medical management heart cath March 2023 -Continue aspirin and Plavix -Continue beta-maciej and high-dose statin -Echocardiogram shows normal EF History of HFpEF -Echo 03/2023 shows normal ef with mild reduction in RV stystolic function and elevated RVSP of 35 -Repeat echo shows normal ef -BNP 507 chest x-ray negative for acute cardiopulmonary process -Continue lasix 40mg p.o. daily -Add jardiance 10mg p.o. daily Hypertension -Well-controlled Hyperlipidemia -LDL goal less than 55, LDL 67 in April 2023 continue statin. CV summary 07/01/2023:Doing well, requesting to go home. Denies chest pain or shortness of breath. Discussed with Dr. Cunha, patient is CV stable for dis charge at this time. Please continue below listed medications and have patient follow-up in cardiology clinic in 1 week for reevaluation. Cardiac meds Aspirin 81 mg p.o. daily Plavix 75 mg p.o. daily Metoprolol succinate 100 mg p.o. daily Imdur 60 mg p.o. daily Lasix 40 mg daily Jardiance 10 mg daily
[2023-07-01 12:00] VITALS: BP 112/74; PULSE 60; RESP 18; TEMP 36.8; O2SAT 90
[2023-07-01 12:12] VITALS: PULSE 63
--- NOTE | 2023-07-01 14:21 | P.DS_ITS ---
General Admission date:: 06/30/23 Discharge date: 07/01/23 HPI HPI HPI: Patient is a 66-year-old male with past medical history of CAD, obstructive sleep apnea hyperlipidemia hypertension hyperlipidemia GERD who presented to hospital due to chest pain. According to patient she has been having chest pain since midnight, it was located in left lower chest, nonradiating denied association with nausea vomiting. At time of my evaluation patient is resting in bed, denies acute chest pain shortness of breath nausea vomiting diarrhea constipation dysuria fevers and chills. Hospital Course Hospital Course Hospital Course: Patient is a 66-year-old male with past medical history of CAD, obstructive sleep apnea hyperlipidemia hypertension hyperlipidemia GERD who presented to hospital due to chest pain. According to patient she has been having chest pain since midnight, it was located in left lower chest, nonradiating denied association with nausea vomiting. At time of my evaluation patient is resting in bed, denies acute chest pain shortness of breath nausea vomiting diarrhea constipation dysuria fevers and chills. Assessment and plan Chest pain likely ACS, STEMI - S/p cardiac cath - Cardiology was consulted from emergency department, patient is status post cardiac cath s/p stenting of first diagonal artery with 1 drug-eluting stent Cardiac meds at discharge Aspirin 81 mg p.o. daily Plavix 75 mg p.o. daily Metoprolol succinate 100 mg p.o. daily Imdur 60 mg p.o. daily Lasix 40 mg daily Jardiance 10 mg dailyStarted on dual antiplatelet therapy with aspirin and Plavix stable for discharge per cardiology Exam Data for Last 24 hours Vital signs and Labs for Last 24 Hours: Temp Pulse Resp BP Pulse Ox O2 Del Method O2 Flow Rate 98.3 F 60 18 112/74 90 L Room Air 2 07/01/23 12:00 07/01/23 12:00 07/01/23 12:00 07/01/23 12:00 07/01/23 12:00 07/01/23 12:00 07/01/23 08:00 Laboratory Results - last 24 hr 07/01/23 05:40: WBC 7.1, RBC 4.73, Hgb 15.1, Hct 46.2, MCV 97.8 H, MCH 32.0 H, MCHC 32.7, RDW 14.4, Plt Count 132 L, MPV 8.5, Neut % (Auto) 68.0, Lymph % (Auto) 22.7, [place] % (Auto) 6.4, Eos % (Auto) 2.1, Baso % (Auto) 0.9, Neut # (Auto) 4.8, Lymph # (Auto) 1.6, [place] # (Auto) 0.5, Eos # (Auto) 0.2, Baso # (Auto) 0.1, Sodium 139, Potassium 3.9, Chloride 106, Carbon Dioxide 26, Anion Gap 10.9, BUN 22 H, Creatinine 1.30 H, Estimated Creat Clear 76, Estimated GFR 54 L, Est GFR ( Amer) 65, Glucose 107 H, Calcium 8.6 I & O for Last 24 hours: Intake & Output 06/28/23 06/29/23 06/30/23 07/01/23 23:59 23:59 23:59 23:59 Intake Total 510 / 510 780 / 780 Output Total 450 / 450 0 / 0 Balance 60 / 60 780 / 780 Weight 110.677 kg 110.677 kg Constitutional Constitutional: no acute distress *Routine HEENT Exam Head: Present normocephalic Eye: Present EOMI and PERRL ENT: Present mucous membranes moist *Routine Neck Exam Neck: Present supple; Absent lymphadenopathy *Routine Respiratory Exam Respiratory: Present CTA bilaterally *Routine Cardiovascular Exam Cardiovascular: Present RRR *Routine Abdominal Exam Abdominal: Present soft and normoactive bowel sounds; Absent tenderness *Routine Extremities Exam Extremities: Absent cyanosis, clubbing or edema *Routine Skin Exam Skin: Present warm; Absent rash *Routine Neurological Exam Neurological: Present alert and oriented X3 Results Data Completed and Pending Labs on day of discharge: Labs from last 24 hours 07/01/23 05:40 WBC 7.1 RBC 4.73 Hgb 15.1 Hct 46.2 MCV 97.8 H MCH 32.0 H MCHC 32.7 RDW 14.4 Plt Count 132 L MPV 8.5 Neut % (Auto) 68.0 Lymph % (Auto) 22.7 Vernon % (Auto) 6.4 Eos % (Auto) 2.1 Baso % (Auto) 0.9 Neut # (Auto) 4.8 Lymph # (Auto) 1.6 Vernon # (Auto) 0.5 Eos # (Auto) 0.2 Baso # (Auto) 0.1 Sodium 139 Potassium 3.9 Chloride 106 Carbon Dioxide 26 Anion Gap 10.9 BUN 22 H Creatinine 1.30 H Estimated Creat Clear 76 Estimated GFR 54 L Est GFR ( Amer) 65 Glucose 107 H Calcium 8.6 DS: Diagnosis Discharge Diagnosis (1) ST elevation (STEMI) myocardial infarction: Status: Acute Code(s): I21.3 - ST elevation (STEMI) myocardial infarction of unspecified site (2) CAD (coronary artery disease): Status: Acute Code(s): I25.10 - Atherosclerotic heart disease of [place] coronary artery without angina pectoris Qualifiers: Coronary Disease-Associated Artery/Lesion type: [place] artery [place] vs. transplanted heart: [place] heart Associated angina: with other forms of angina Qualified Code(s): I25.118 - Atherosclerotic heart disease of [place] coronary artery with other forms of angina pectoris (3) HLD (hyperlipidemia): Status: Chronic Code(s): E78.5 - Hyperlipidemia, unspecified Qualifiers: Hyperlipidemia type: mixed hyperlipidemia Qualified Code(s): E78.2 - Mixed hyperlipidemia (4) HTN (hypertension): Status: Chronic Code(s): I10 - Essential (primary) hypertension Qualifiers: Hypertension type: primary hypertension Qualified Code(s): I10 - Essential (primary) hypertension Meds Home Medications and Allergies Home Medications Medication Instructions Recorded Confirmed Type pantoprazole 40 mg tablet,delayed 40 mg PO DAILY 01/01/21 06/30/23 History release tamsulosin 0.4 mg capsule 0.4 mg PO DAILY 01/01/21 06/30/23 History aspirin 81 mg chewable tablet 81 mg PO DAILY 30 days #30 tabs 04/14/23 06/30/23 Rx (Yoselin Chewable Low Dose Aspirin) atorvastatin 20 mg tablet (Lipitor) 20 mg PO HS 30 days #30 tabs 04/14/23 06/30/23 Rx clopidogrel 75 mg tablet (Plavix) 75 mg PO DAILY 30 days #30 tabs 04/14/23 06/30/23 Rx metoprolol succinate 100 mg 100 mg PO DAILY 30 days #30 tabs 04/14/23 06/30/23 Rx tablet,extended release 24 hr (Toprol XL) amlodipine 10 mg tablet 10 mg PO DAILY #90 tabs 05/04/23 06/30/23 Rx isosorbide mononitrate 60 mg 60 mg PO DAILY #90 tabs 05/04/23 06/30/23 Rx tablet,extended release 24 hr furosemide 40 mg tablet 40 mg PO DAILY 30 days #30 tabs 07/01/23 Rx New Prescriptions to Start Prescriptions: Linus Salcedo Allergies Allergy/AdvReac Type Severity Reaction Status Date / Time irbesartan Allergy Unknown Verified 06/01/23 10:14 allergy reaction Discharge Plan Disposition Patient Disposition: Home, Self-Care Condition: Good Discharge Order Discharge Orders: Discharge Order (Routine); Ordered 07/01/23 Ordered By: iLnus Ortiz Follow up Plan Follow up with: Tono Coleman MD [Staff Physician] - 1 week Prescriptions/Medication Reconciliation: New furosemide 40 mg Tablet 40 mg PO DAILY 30 Days Qty: 30 0RF Continued pantoprazole 40 mg tablet,delayed release (DR/EC) 40 mg PO DAILY tamsulosin 0.4 mg capsule 0.4 mg PO DAILY amlodipine 10 mg tablet 10 mg PO DAILY Qty: 90 3RF isosorbide mononitrate 60 mg tablet extended release 24 hr 60 mg PO DAILY Qty: 90 3RF atorvastatin [Lipitor] 20 mg Tablet 20 mg PO HS 30 Days Qty: 30 6RF metoprolol succinate [Toprol XL] 100 mg Tablet Extended Release 24 Hr 100 mg PO DAILY 30 Days Qty: 30 6RF clopidogrel [Plavix] 75 mg Tablet 75 mg PO DAILY 30 Days Qty: 30 6RF aspirin [Yoselin Chewable Aspirin] 81 mg Tablet,Chewable 81 mg PO DAILY 30 Days Qty: 30 6RF Discontinued furosemide [Lasix] 20 mg tablet 40 mg PO DAILY Problem Reconciliation Problems Reviewed?: Yes Patient Discharge Instructions ACTIVITY: Ambulate as tolerated DIET: continue same diet Providers Primary Care Provider: Provider,Referral Admit Provider: Regan Al Attending Provider: Regan Al
--- NOTE | 2023-07-02 16:01 | CARE MANAGER ---
Called and spoke with patient regarding recent discharge. He stated he is doing well, has started new dose of lasix as prescribed at discharge and is aware of scheduled f/u appts. No concerns voiced at time of call.
== END 2023-07-01 15:30 | disposition home or self-care (01) | DRG 322 ==
LOC: ER 05:24 → ICU 08:34 → 2ND 08:34
PROVIDERS: Internal Medicine; Admitting Provider Internal Medicine Adolescent Medicine; Emergency Provider Emergency Medicine; Visit Provider Internal Medicine Adolescent Medicine
PROC: 027034Z Dilation of Coronary Artery, One Artery with Drug-eluting Intraluminal Device, Percutaneous Approach (ICD-10-PCS; principal; 2023-06-30 05:00)
DX: I21.3 ST elevation (STEMI) myocardial infarction of unspecified site (principal); I10 Essential (primary) hypertension; N40.0 Benign prostatic hyperplasia without lower urinary tract symptoms; G47.33 Obstructive sleep apnea (adult) (pediatric); K21.9 Gastro-esophageal reflux disease without esophagitis; Z95.5 Presence of coronary angioplasty implant and graft; I25.119 Atherosclerotic heart disease of native coronary artery with unspecified angina pectoris; E78.2 Mixed hyperlipidemia
CPT/HCPCS: 36415; 71045; 80048; 80053; 83880; 84484; 85025; 85347; 85610; 85730; 92941; 93005; 93308; 93454; 99152; 99291; C1725; C1760; C1769; C1876; C1894; C9606; J1644; Q9967

== ENCOUNTER 2023-07-02 10:32 | Outpatient (CLI) | payer MEDICARE, OTHER, SELFPAY ==
[2023-07-02 10:39] LABS: MANUAL DIFFERENTIAL MANUAL DIFFERENTIAL (MANUAL DIFF)
[2023-07-02 11:01] LABS: Basophils # 0.1 K/mm3 (0-0.2); Basophils % 0.9 % (0.1-2.0); Eosinophils # 0.2 K/mm3 (0.0-0.4); Eosinophils % 3.6 % (0.1-12.0); Hematocrit 47.5 % (42.0-52.0); Hemoglobin 15.6 g/dL (14.1-18.0); Lymphocytes # 1.2 K/mm3 (0.7-4.5); Lymphocytes % 19.5 % (10-50); Mean Corpuscular HGB Conc 32.9 g/dL (31.8-35.4); Mean Corpuscular Hemoglobin 31.5 pg (27.0-31.2); Mean Corpuscular Volume 95.8 fl (80-94); Mean Platelet Volume 7.3 fl (7.4-10.4); Monocytes # 0.5 K/mm3 (0.1-1.0); Monocytes % 7.6 % (1.7-9.3); Neutrophils # 4.4 K/mm3 (1.8-7.8); Neutrophils % 68.5 % (37.0-80.0); Platelet Count 139 K/mm3 (142-424); Red Blood Count 4.96 M/mm3 (4.60-6.20); Red Cell Distribution Width 13.9 % (11.5-17.5); White Blood Count 6.4 K/mm3 (4.8-10.8)
[2023-07-02 11:31] LABS: Chloride 104 mmol/L (98-107); Sodium 140 mmol/L (136-145)
[2023-07-02 11:34] LABS: Blood Urea Nitrogen 25 mg/dl (9-20); Calcium 8.8 mg/dl (8.4-10.2); Carbon Dioxide 31 mmol/L (22.0-30.0); Estimated Glomerular Filt Rate 49 ml/min (>60); GFR (African American) 60 ML/MIN (>60); Glucose 106 mg/dl (74-100)
[2023-07-02 14:10] LABS: Eosinophils % 6 % (0-3); Lymphocytes % 19 % (10-50); Monocytes % 4 % (2-9); Neutrophils % 69 % (42-76); Total Cells Counted 100
[2023-07-02 14:29] LABS: RBC Morphology Normal
[2023-07-02 14:30] LABS: Platelet Estimate Normal
== END 2023-07-02 23:59 ==
PROVIDERS: PCP Nurse Practitioner Family; Visit Provider Internal Medicine
DX: I25.118 Atherosclerotic heart disease of native coronary artery with other forms of angina pectoris (principal)
CPT/HCPCS: 36415; 80048; 85007; 85014; 85018; 85048; 85049

== ENCOUNTER → 2023-09-04 10:28 | Outpatient (CLI) | payer MEDICARE, OTHER, SELFPAY | LOC: SL 10:29 | PROVIDERS: PCP Nurse Practitioner Family; Visit Provider Nurse Practitioner Family | DX: G47.33 Obstructive sleep apnea (adult) (pediatric) (principal) | CPT/HCPCS: G0399 ==

== ENCOUNTER 2023-11-02 15:19 | Outpatient (CLI) | payer MEDICARE, OTHER, SELFPAY ==
[2023-11-02 15:58] LABS: Basophils # 0.1 K/mm3 (0-0.2); Eosinophils # 0.1 K/mm3 (0.0-0.4); Eosinophils % 2.4 % (0.1-12.0); Hematocrit 45.6 % (42.0-52.0); Hemoglobin 15.6 g/dL (14.1-18.0); Lymphocytes # 1.4 K/mm3 (0.7-4.5); Lymphocytes % 23.9 % (10-50); Mean Corpuscular HGB Conc 34.3 g/dL (31.8-35.4); Mean Corpuscular Hemoglobin 32.2 pg (27.0-31.2); Mean Corpuscular Volume 93.9 fl (80-94); Mean Platelet Volume 8.5 fl (7.4-10.4); Monocytes # 0.4 K/mm3 (0.1-1.0); Monocytes % 6.1 % (1.7-9.3); Neutrophils % 66.7 % (37.0-80.0); Platelet Count 166 K/mm3 (142-424); Red Blood Count 4.85 M/mm3 (4.60-6.20); Red Cell Distribution Width 14.4 % (11.5-17.5)
[2023-11-02 16:29] LABS: Alanine Aminotransferase 17 U/L (12-78); Albumin Level 4.3 g/dl (3.5-5.0); Alkaline Phosphatase 71 U/L (38-126); Anion Gap 11.2 mEq/L (5-15); Aspartate Amino Transferase 22 U/L (17-59); Bilirubin,Indirect 1.9 mg/dL (0.0-0.9); Bilirubin,Total 1.9 mg/dl (0.2-1.3); Blood Urea Nitrogen 19 mg/dl (9-20); Calcium 9.3 mg/dl (8.4-10.2); Carbon Dioxide 28 mmol/L (22.0-30.0); Chloride 107 mmol/L (98-107); Chol/HDL Ratio 3.3 (1-3.5); Cholesterol 146 mg/dl (140-200); Estimated Glomerular Filt Rate 59 ml/min (>60); GFR (African American) 71 ML/MIN (>60); Glucose 102 mg/dl (74-100); HDL Cholesterol 44 mg/dl (40-60); Potassium 4.2 mmoL/L (3.5-5.1); Sodium 142 mmol/L (136-145); Triglycerides 150 mg/dl (30-150); VLDL Cholesterol 30 mg/dL (0-40)
[2023-11-02 16:39] LABS: Direct LDL Cholesterol 65.36 mg/dL (100-129)
[2023-11-02 16:47] LABS: Free T4 (Free Thyroxine) 1.12 ng/dl (0.78-2.19)
[2023-11-02 17:02] LABS: Thyroid Stimulating Hormone 2.18 uIU/mL (0.465-4.68)
== END 2023-11-02 23:59 | disposition home or self-care (01) ==
LOC: LAB 15:21
PROVIDERS: PCP Nurse Practitioner Family; Visit Provider Nurse Practitioner
DX: I25.10 Atherosclerotic heart disease of native coronary artery without angina pectoris (principal); I10 Essential (primary) hypertension; E78.2 Mixed hyperlipidemia; I25.118 Atherosclerotic heart disease of native coronary artery with other forms of angina pectoris; K21.9 Gastro-esophageal reflux disease without esophagitis; I11.9 Hypertensive heart disease without heart failure; R06.00 Dyspnea, unspecified
CPT/HCPCS: 36415; 80048; 80061; 80076; 84439; 84443; 85025

== ENCOUNTER 2023-11-27 10:26 | Outpatient (CLI) | payer MEDICARE, OTHER, SELFPAY ==
--- NOTE | 2023-11-27 10:27 | CA_ITS ---
APPROVED REPORT EXAM: Comprehensive 2D, Doppler, and color-flow Echocardiogram Car Supplier: Stephanie Ramsay RDCS Ht: 6 ft 1 in Wt: 210lbs BSA: 2.20 BP: 158/94 mmHg Indications: SOA CAD CP HTN HLP M-Mode Dimensions RVDd 3.57 cm (0.9-2.6) LA Diam 3.87 cm (1.9-4.0) LVDd 5.26 cm (3.5-5.7) LVDs 3.85 cm (3.5-5.7) IVSd 0.76 cm (0.6-1.1) PWd 0.88 cm (0.6-1.1) EF (Teich) 52.00% FS 26.80% EDV (Teich) 133.00 mL TAPSE 1.41 (<1.7) ESV (Teich) 63.90 mL LV Diastology E Decel Time 230 (160-240 msec) E/A Ratio 0.8 Aortic Valve AI PHT 509.00 ms Mitral Valve MV E Max Arturo. 64.0 (40-130 cm/s) MV A Velocity 83.0 (40-130 cm/s) E/A Ratio 0.77 MV PHT 67.0 ms Tricuspid Valve TR P. Velocity 255.00 cm/s RAP Estimate 10.00 mmHg RVSP 36.10 mmHg Left Ventricle The left ventricle is normal size. The left ventricular systolic function is normal. The left ventricular ejection fraction is within the normal range. There is increased LV wall thickness. There is normal LV segmental wall motion. Diastolic function is indeterminate. LVEF is 55%. Right Ventricle Right ventricle is mildly dilated. Right ventricle is mildly hypokinetic. Atria Left atrium is moderately dilated. Right atrium is mildly dilated. There is no Doppler evidence of interatrial shunt. Aortic Valve The aortic valve is mildly thickened. There is no aortic valvular stenosis. Trace aortic regurgitation. Mitral Valve The mitral valve is normal in structure. No evidence of mitral valve stenosis. Trace mitral regurgitation. Tricuspid Valve The tricuspid valve leaflets are thin and pliable. Trace tricuspid regurgitation. There is insufficient TR jet to estimate RVSP. Pulmonic Valve The pulmonary valve is normal in structure. Trace pulmonic regurgitation. Great Vessels The aortic root is normal in size. The ascending aorta is normal in size. IVC is normal in size and collapses >50% with inspiration. Pericardium There is no pericardial effusion. Other Information Study Quality: Fair Conclusion Normal LV systolic function. Mild RV dilation with mild reduction in RV function. Biatrial dilation. No significant valvular stenosis or regurgitation. Electronically signed by : Pallavi Cunha MD 12/01/2023 09:16:25
== END 2023-11-27 23:59 | disposition home or self-care (01) ==
LOC: RT 10:27
PROVIDERS: Visit Provider Physician Assistant
DX: I51.7 Cardiomegaly (principal); I25.118 Atherosclerotic heart disease of native coronary artery with other forms of angina pectoris; R06.09 Other forms of dyspnea; G47.33 Obstructive sleep apnea (adult) (pediatric)
CPT/HCPCS: 93306

== ENCOUNTER → 2024-03-22 20:04 | Outpatient (CLI) | payer MEDICARE, OTHER, SELFPAY | LOC: SL 20:08 | PROVIDERS: PCP Nurse Practitioner Family; Visit Provider Specialist | DX: G47.33 Obstructive sleep apnea (adult) (pediatric) (principal) | CPT/HCPCS: 95811 ==

== ENCOUNTER 2024-05-11 09:24 | Outpatient (CLI) | payer MEDICARE, OTHER, SELFPAY ==
[2024-05-11 09:43] LABS: Basophils % 0.5 % (0.1-2.0); Eosinophils # 0.1 K/mm3 (0.0-0.4); Eosinophils % 2.3 % (0.1-12.0); Hematocrit 43.5 % (42.0-52.0); Hemoglobin 14.8 g/dL (14.1-18.0); Lymphocytes # 1.1 K/mm3 (0.7-4.5); Lymphocytes % 18.8 % (10-50); Mean Platelet Volume 9.9 fl (7.4-10.4); Monocytes # 0.5 K/mm3 (0.1-1.0); Monocytes % 7.9 % (1.7-9.3); Neutrophils % 70.3 % (37.0-80.0); Platelet Count 143 K/mm3 (142-424); Red Blood Count 4.78 M/mm3 (4.60-6.20); Red Cell Distribution Width 12.7 % (11.5-17.5); White Blood Count 5.7 K/mm3 (4.8-10.8)
[2024-05-11 10:22] LABS: Albumin Level 4.2 g/dl (3.5-5.0); Chloride 108 mmol/L (98-107); Potassium 4.2 mmoL/L (3.5-5.1); Sodium 138 mmol/L (136-145)
[2024-05-11 10:24] LABS: Alanine Aminotransferase 27 U/L (12-78); Anion Gap 9.2 mEq/L (5-15); Bilirubin,Unconjugated 1.7 mg/dL (0.0-1.1); Blood Urea Nitrogen 16 mg/dl (9-20); Carbon Dioxide 25 mmol/L (22.0-30.0); Estimated Glomerular Filt Rate 73 ml/min (>60); GFR (African American) 88 ML/MIN (>60)
[2024-05-11 10:25] LABS: Alkaline Phosphatase 62 U/L (38-126); Aspartate Amino Transferase 27 U/L (17-59); Bilirubin,Direct 0.1 mg/dl (0.0-0.4); Bilirubin,Indirect 1.7 mg/dL (0.0-0.9); Bilirubin,Total 1.8 mg/dl (0.2-1.3); Calcium 8.8 mg/dl (8.4-10.2); Chol/HDL Ratio 3.7 (1-3.5); Cholesterol 129 mg/dl (140-200); Glucose 115 mg/dl (74-100); HDL Cholesterol 35 mg/dl (40-60); Magnesium 1.7 mg/dl (1.6-2.3); Total Protein,Serum 6.6 g/dl (6.3-8.2); Triglycerides 164 mg/dl (30-150); VLDL Cholesterol 33 mg/dL (0-40)
[2024-05-11 10:38] LABS: Direct LDL Cholesterol 63.27 mg/dL (100-129)
[2024-05-11 11:00] LABS: Thyroid Stimulating Hormone 1.95 uIU/mL (0.465-4.68)
== END 2024-05-11 23:59 | disposition home or self-care (01) ==
LOC: LAB 09:25
PROVIDERS: PCP Nurse Practitioner Family; Visit Provider Nurse Practitioner
DX: G47.33 Obstructive sleep apnea (adult) (pediatric) (principal); I25.118 Atherosclerotic heart disease of native coronary artery with other forms of angina pectoris; E78.2 Mixed hyperlipidemia; I10 Essential (primary) hypertension; N52.2 Drug-induced erectile dysfunction; R73.03 Prediabetes
CPT/HCPCS: 36415; 80048; 80061; 80076; 83036; 83735; 84439; 84443; 85025

== ENCOUNTER 2024-11-01 13:24 | Outpatient (CLI) | payer MEDICARE, OTHER, SELFPAY ==
[2024-11-01 13:43] LABS: Hematocrit 43.5 % (42.0-52.0); Hemoglobin 14.9 g/dL (14.1-18.0); Immature Granulocytes % 0.1 %; Mean Corpuscular HGB Conc 34.3 g/dL (31.8-35.4); Mean Corpuscular Hemoglobin 31.4 pg (27.0-31.2); Mean Corpuscular Volume 91.6 fl (80-94); Nucleated Red Blood Cells % 0 %; Platelet Count 158 K/mm3 (142-424); Red Blood Count 4.75 M/mm3 (4.60-6.20); Red Cell Distribution Width-SD 44.0 fL; White Blood Count 7.0 K/mm3 (4.8-10.8)
[2024-11-01 14:12] LABS: Alanine Aminotransferase 16 U/L (12-78); Albumin Level 4.4 g/dl (3.5-5.0); Alkaline Phosphatase 62 U/L (38-126); Anion Gap 16.1 mEq/L (5-15); Aspartate Amino Transferase 21 U/L (17-59); Bilirubin,Direct 0.1 mg/dl (0.0-0.4); Bilirubin,Indirect 1.9 mg/dL (0.0-0.9); Bilirubin,Total 2.0 mg/dl (0.2-1.3); Bilirubin,Unconjugated 1.9 mg/dL (0.0-1.1); Blood Urea Nitrogen 17 mg/dl (9-20); Calcium 9.2 mg/dl (8.4-10.2); Carbon Dioxide 26 mmol/L (22.0-30.0); Chloride 102 mmol/L (98-107); Cholesterol 132 mg/dl (140-200); Creatinine,Serum 1.00 mg/dl (0.66-1.25); Estimated Glomerular Filt Rate 72 ml/min (>60); GFR (African American) 88 ML/MIN (>60); Glucose 124 mg/dl (74-100); HDL Cholesterol 36 mg/dl (40-60); Magnesium 1.8 mg/dl (1.6-2.3); Potassium 4.1 mmoL/L (3.5-5.1); Sodium 140 mmol/L (136-145); Total Protein,Serum 6.8 g/dl (6.3-8.2); Triglycerides 339 mg/dl (30-150)
[2024-11-01 14:28] LABS: Free T4 (Free Thyroxine) 1.09 ng/dl (0.78-2.19)
[2024-11-01 14:47] LABS: Thyroid Stimulating Hormone 1.20 uIU/mL (0.465-4.68)
== END 2024-11-01 23:59 | disposition home or self-care (01) ==
LOC: LAB 13:25
PROVIDERS: PCP Nurse Practitioner Family; Visit Provider Nurse Practitioner
DX: I10 Essential (primary) hypertension (principal); I25.118 Atherosclerotic heart disease of native coronary artery with other forms of angina pectoris
CPT/HCPCS: 36415; 80048; 80061; 80076; 83735; 84439; 84443; 85025